=== PATIENT | female | born 1965 | race Caucasian/White ===

== ENCOUNTER → 2020-08-04 08:15 | Outpatient (BNVA) | payer OTHER, MEDICARE, SELFPAY | PROVIDERS: PCP Internal Medicine; Visit Provider Family Medicine Adult Medicine | DX: M96.1 Postlaminectomy syndrome, not elsewhere classified (principal); Z79.891 Long term (current) use of opiate analgesic | CPT/HCPCS: 99212 ==

== ENCOUNTER → 2020-09-17 09:00 | Outpatient (BNVA) | payer OTHER, MEDICARE, SELFPAY | PROVIDERS: PCP Internal Medicine; Referring Provider Internal Medicine; Visit Provider Anesthesiology | DX: M96.1 Postlaminectomy syndrome, not elsewhere classified (principal); G89.4 Chronic pain syndrome; Z79.891 Long term (current) use of opiate analgesic | CPT/HCPCS: 99212 ==

== ENCOUNTER → 2020-09-29 09:31 | Outpatient (BNVA) | payer OTHER, MEDICARE, SELFPAY | PROVIDERS: PCP Internal Medicine; Visit Provider Family Medicine Adult Medicine | DX: M96.1 Postlaminectomy syndrome, not elsewhere classified (principal); Z79.899 Other long term (current) drug therapy | CPT/HCPCS: 99212 ==

== ENCOUNTER → 2020-11-19 08:27 | Outpatient (BNVA) | payer OTHER, MEDICARE, SELFPAY | PROVIDERS: PCP Internal Medicine; Visit Provider Anesthesiology ==

== ENCOUNTER → 2020-11-24 08:32 | Outpatient (BNVA) | payer OTHER, MEDICARE, SELFPAY | PROVIDERS: PCP Internal Medicine; Visit Provider Family Medicine Adult Medicine | DX: M96.1 Postlaminectomy syndrome, not elsewhere classified (principal); G89.4 Chronic pain syndrome; Z79.891 Long term (current) use of opiate analgesic | CPT/HCPCS: 99212 ==

== ENCOUNTER → 2020-12-08 12:59 | Outpatient (BNVA) | payer OTHER, MEDICARE, SELFPAY | PROVIDERS: PCP Internal Medicine; Visit Provider Family Medicine Adult Medicine | DX: M96.1 Postlaminectomy syndrome, not elsewhere classified (principal); G89.4 Chronic pain syndrome | CPT/HCPCS: 99212 ==

== ENCOUNTER → 2021-01-04 15:01 | Outpatient (BNVA) | payer OTHER, MEDICARE, SELFPAY | PROVIDERS: PCP Internal Medicine; Visit Provider Anesthesiology ==

== ENCOUNTER → 2021-01-07 15:11 | Outpatient (BNVA) | payer OTHER, MEDICARE, SELFPAY | PROVIDERS: PCP Internal Medicine; Visit Provider Family Medicine Adult Medicine | DX: Z13.89 Encounter for screening for other disorder (principal) | CPT/HCPCS: 99212 ==

== ENCOUNTER → 2021-02-01 13:32 | Outpatient (BNVA) | payer OTHER, MEDICARE, SELFPAY | PROVIDERS: PCP Internal Medicine; Visit Provider Internal Medicine Gastroenterology | DX: Z13.89 Encounter for screening for other disorder (principal) ==

== ENCOUNTER → 2021-02-18 12:46 | Outpatient (BNVA) | payer OTHER, MEDICARE, SELFPAY | PROVIDERS: PCP Internal Medicine; Visit Provider Family Medicine Adult Medicine | DX: M96.1 Postlaminectomy syndrome, not elsewhere classified (principal); G89.4 Chronic pain syndrome | CPT/HCPCS: 99212 ==

== ENCOUNTER → 2021-03-17 14:48 | Outpatient (BNVA) | payer OTHER, MEDICARE, SELFPAY | PROVIDERS: PCP Internal Medicine; Visit Provider Nurse Practitioner Family | DX: M96.1 Postlaminectomy syndrome, not elsewhere classified (principal); G89.4 Chronic pain syndrome; Z79.891 Long term (current) use of opiate analgesic | CPT/HCPCS: 99212 ==

== ENCOUNTER → 2021-04-13 13:47 | Outpatient (BNVA) | payer OTHER, MEDICARE, SELFPAY | PROVIDERS: PCP Internal Medicine; Visit Provider Family Medicine Adult Medicine | DX: M96.1 Postlaminectomy syndrome, not elsewhere classified (principal); G89.4 Chronic pain syndrome | CPT/HCPCS: 99212 ==

== ENCOUNTER → 2021-05-11 09:02 | Outpatient (BNVA) | payer OTHER, SELFPAY | PROVIDERS: PCP Internal Medicine; Visit Provider Family Medicine Adult Medicine | DX: M96.1 Postlaminectomy syndrome, not elsewhere classified (principal); G89.4 Chronic pain syndrome | CPT/HCPCS: 99212 ==

== ENCOUNTER → 2021-06-11 13:51 | Outpatient (BNVA) | payer OTHER, SELFPAY | PROVIDERS: PCP Internal Medicine; Visit Provider Nurse Practitioner Family | DX: Z51.81 Encounter for therapeutic drug level monitoring (principal); M96.1 Postlaminectomy syndrome, not elsewhere classified; G89.4 Chronic pain syndrome; Z79.891 Long term (current) use of opiate analgesic | CPT/HCPCS: 99212 ==

== ENCOUNTER → 2021-07-15 08:32 | Outpatient (BNVA) | payer OTHER, SELFPAY | PROVIDERS: PCP Internal Medicine; Visit Provider Family Medicine Adult Medicine | DX: G89.4 Chronic pain syndrome (principal); M96.1 Postlaminectomy syndrome, not elsewhere classified; E78.5 Hyperlipidemia, unspecified; F41.8 Other specified anxiety disorders; Z88.8 Allergy status to other drugs, medicaments and biological substances; Z79.891 Long term (current) use of opiate analgesic; Z79.899 Other long term (current) drug therapy | CPT/HCPCS: 99212 ==

== ENCOUNTER → 2021-08-10 10:44 | Outpatient (BNVA) | payer OTHER, SELFPAY | PROVIDERS: Visit Provider Family Medicine Adult Medicine | DX: G89.4 Chronic pain syndrome (principal); M96.1 Postlaminectomy syndrome, not elsewhere classified; Z79.899 Other long term (current) drug therapy | CPT/HCPCS: 99212 ==

== ENCOUNTER → 2021-09-14 10:10 | Outpatient (BNVA) | payer OTHER, SELFPAY | PROVIDERS: Visit Provider Family Medicine Adult Medicine ==

== ENCOUNTER → 2021-10-12 12:47 | Outpatient (BNVA) | payer OTHER, SELFPAY | PROVIDERS: PCP Internal Medicine; Visit Provider Nurse Practitioner Family | DX: Z51.81 Encounter for therapeutic drug level monitoring (principal); F11.20 Opioid dependence, uncomplicated | CPT/HCPCS: 99212 ==

== ENCOUNTER → 2021-11-11 09:50 | Outpatient (BNVA) | payer OTHER, SELFPAY | PROVIDERS: PCP Internal Medicine; Visit Provider Nurse Practitioner Family | DX: Z51.81 Encounter for therapeutic drug level monitoring (principal); F11.20 Opioid dependence, uncomplicated | CPT/HCPCS: 99212 ==

== ENCOUNTER → 2021-12-09 13:30 | Outpatient (BNVA) | payer OTHER, SELFPAY | PROVIDERS: PCP Internal Medicine; Visit Provider Nurse Practitioner Family | DX: Z51.81 Encounter for therapeutic drug level monitoring (principal); F11.20 Opioid dependence, uncomplicated; M96.1 Postlaminectomy syndrome, not elsewhere classified; G89.4 Chronic pain syndrome | CPT/HCPCS: 99212 ==

== ENCOUNTER → 2022-01-04 09:57 | Outpatient (BNVA) | payer OTHER, SELFPAY | PROVIDERS: PCP Internal Medicine; Visit Provider Nurse Practitioner Family | DX: Z51.81 Encounter for therapeutic drug level monitoring (principal); F11.20 Opioid dependence, uncomplicated; M96.1 Postlaminectomy syndrome, not elsewhere classified; G89.4 Chronic pain syndrome | CPT/HCPCS: 99212 ==

== ENCOUNTER → 2022-02-01 09:57 | Outpatient (BNVA) | payer SELFPAY | PROVIDERS: PCP Internal Medicine; Visit Provider Nurse Practitioner Family | DX: Z51.81 Encounter for therapeutic drug level monitoring (principal); F11.20 Opioid dependence, uncomplicated | CPT/HCPCS: 99211 ==

== ENCOUNTER → 2022-03-01 10:50 | Outpatient (BNVA) | payer OTHER, SELFPAY | PROVIDERS: PCP Internal Medicine; Visit Provider Nurse Practitioner Family | DX: Z51.81 Encounter for therapeutic drug level monitoring (principal); M96.1 Postlaminectomy syndrome, not elsewhere classified; G89.4 Chronic pain syndrome; Z79.891 Long term (current) use of opiate analgesic | CPT/HCPCS: 99212 ==

== ENCOUNTER → 2022-03-29 08:41 | Outpatient (BNVA) | payer OTHER, SELFPAY | PROVIDERS: PCP Internal Medicine; Visit Provider Nurse Practitioner Family | DX: Z51.81 Encounter for therapeutic drug level monitoring (principal); G89.4 Chronic pain syndrome; M96.1 Postlaminectomy syndrome, not elsewhere classified; M62.830 Muscle spasm of back; Z79.891 Long term (current) use of opiate analgesic | CPT/HCPCS: 99212 ==

== ENCOUNTER → 2022-04-26 08:59 | Outpatient (BNVA) | payer OTHER, SELFPAY | PROVIDERS: PCP Internal Medicine; Visit Provider Nurse Practitioner Family | DX: Z51.81 Encounter for therapeutic drug level monitoring (principal); F11.20 Opioid dependence, uncomplicated | CPT/HCPCS: 99211 ==

== ENCOUNTER → 2022-05-26 08:48 | Outpatient (BNVA) | payer OTHER, SELFPAY | PROVIDERS: PCP Internal Medicine; Visit Provider Nurse Practitioner Family | DX: Z51.81 Encounter for therapeutic drug level monitoring (principal); F11.20 Opioid dependence, uncomplicated | CPT/HCPCS: 99211 ==

== ENCOUNTER → 2022-06-27 08:45 | Outpatient (BNVA) | payer OTHER, SELFPAY | PROVIDERS: PCP Internal Medicine; Visit Provider Nurse Practitioner Family | DX: M96.1 Postlaminectomy syndrome, not elsewhere classified (principal); G89.4 Chronic pain syndrome; M62.830 Muscle spasm of back; Z79.891 Long term (current) use of opiate analgesic | CPT/HCPCS: 99212 ==

== ENCOUNTER → 2022-07-28 10:47 | Outpatient (BNVA) | payer OTHER, SELFPAY | PROVIDERS: PCP Internal Medicine; Visit Provider Nurse Practitioner Family | DX: Z51.81 Encounter for therapeutic drug level monitoring (principal); F11.20 Opioid dependence, uncomplicated | CPT/HCPCS: 99211 ==

== ENCOUNTER → 2022-09-05 10:28 | Outpatient (BNVA) | payer OTHER, SELFPAY | PROVIDERS: PCP Internal Medicine; Visit Provider Nurse Practitioner Family | DX: M96.1 Postlaminectomy syndrome, not elsewhere classified (principal); G89.4 Chronic pain syndrome; M62.830 Muscle spasm of back; Z79.891 Long term (current) use of opiate analgesic | CPT/HCPCS: 99212 ==

== ENCOUNTER → 2022-10-04 09:57 | Outpatient (BNVA) | payer OTHER, SELFPAY | PROVIDERS: PCP Internal Medicine; Visit Provider Nurse Practitioner Family | DX: Z51.81 Encounter for therapeutic drug level monitoring (principal) ==

== ENCOUNTER → 2022-11-03 09:29 | Outpatient (BNVA) | payer OTHER, SELFPAY | PROVIDERS: PCP Internal Medicine; Visit Provider Nurse Practitioner Family | DX: M96.1 Postlaminectomy syndrome, not elsewhere classified (principal); M62.830 Muscle spasm of back; G89.4 Chronic pain syndrome; Z79.891 Long term (current) use of opiate analgesic | CPT/HCPCS: 99212 ==

== ENCOUNTER → 2022-12-01 11:47 | Outpatient (BNVA) | payer OTHER, SELFPAY | PROVIDERS: PCP Internal Medicine; Visit Provider Nurse Practitioner Family | DX: Z51.81 Encounter for therapeutic drug level monitoring (principal); F11.20 Opioid dependence, uncomplicated | CPT/HCPCS: 99211 ==

== ENCOUNTER → 2023-01-04 10:32 | Outpatient (BNVA) | payer OTHER, SELFPAY | PROVIDERS: PCP Internal Medicine; Visit Provider Anesthesiology | DX: M96.1 Postlaminectomy syndrome, not elsewhere classified (principal) | CPT/HCPCS: 99212 ==

== ENCOUNTER → 2023-02-01 11:17 | Outpatient (BNVA) | payer OTHER, SELFPAY | PROVIDERS: PCP Internal Medicine; Visit Provider Nurse Practitioner Family | DX: Z79.891 Long term (current) use of opiate analgesic (principal) | CPT/HCPCS: 99211 ==

== ENCOUNTER → 2023-03-07 10:02 | Outpatient (BNVA) | payer OTHER, SELFPAY | PROVIDERS: PCP Internal Medicine; Visit Provider Registered Nurse Emergency | DX: Z51.81 Encounter for therapeutic drug level monitoring (principal); M96.1 Postlaminectomy syndrome, not elsewhere classified; M62.830 Muscle spasm of back; Z79.891 Long term (current) use of opiate analgesic; G89.4 Chronic pain syndrome | CPT/HCPCS: 99212 ==

== ENCOUNTER → 2023-04-04 09:53 | Outpatient (BNVA) | payer OTHER, SELFPAY | PROVIDERS: PCP Internal Medicine; Visit Provider Registered Nurse Emergency | DX: G89.4 Chronic pain syndrome (principal); M96.1 Postlaminectomy syndrome, not elsewhere classified; M62.830 Muscle spasm of back; Z79.891 Long term (current) use of opiate analgesic | CPT/HCPCS: 99212 ==

== ENCOUNTER 2023-05-16 10:04 | Outpatient (AMB) | payer OTHER, SELFPAY ==
--- NOTE | 2023-05-16 10:14 | A.OFFVIS_ITS ---
Intake Vital Signs 05/16/23 10:18 Height 5 ft 2 in Weight 133 lb BMI 24.3 BP 112/58 L Blood Pressure Location Rt brachial Position Sitting Respiration 16 Pulse 70 Pulse Source Pulse Oximeter Pulse Oximetry (%) 97 Oxygen Delivery Method Room Air Intake Visit Reasons: Pill count Allergies adhesive Allergy (Unknown, Verified 05/16/23 10:20) Hives Adhesive Bandages Allergy (Unknown, Uncoded 02/01/23 11:38) hives medical tape Allergy (Unknown, Uncoded 02/01/23 11:38) hives N.K.D.A. Allergy (Unknown, Uncoded 02/01/23 11:38) none HPI HPI Comments History of Present Illness Details Vannesa is a pleasant 58 year old female who presents to the office today for follow up chronic pain and chronic opioid therapy management. Patient is prescribed oxycodone acetaminophen 5-325mg take 1 tablet Q8H. Patient arrived today with the expectation of having 30 pills, she presented 33 pills which were counted in the presence of two staff members and returned to the patient in the original prescription bottle. This demonstrates responsible attitude toward patient's opioid medications. Pain is reported today as 5/10 and last dose of pain medication was taken at 08:00 this morning. Pain is adequatel y managed on current opioid regimen; she denies any recent changes or exacerbations of chronic back pain and states she is able to engage in activities of daily living with the benefits of her opioid medication. Recently returned from a trip to [place], had a great time and was able to do a lot of walking while there. Prior visit with Dr Edgar 12/2022: She reports inadequate analgesia with her opioid medications.? She is on Percocet 5 mg 3 times a day.? She reports that her pain today is 6.5/10.? She reports significant problems with getting up straight from the wheelchair.? She reports bilateral flanks pains as well as bilateral paraspinal pains in the thoracic spine.? She formally had 3 pulmonary embolisms.? I DDD and SCS discussed with the patient.? Trial of Nevro SCS is offered to the patient if she can pass through the pre trial psychological evaluation.? She would like to think about it.. [facility] Medical History Anxiety Chronic pain syndrome Depression Failed back syndrome, lumbar Gastritis Hyperlipidemia retirement (current) use of opiate analgesic Surgical History H/O colonoscopy H/O discectomy H/O esophagogastroduodenoscopy H/O total hysterectomy H/O tubal ligation Family History Father No problems noted. Mother Diabetes Sister Ovarian cancer Review of Systems Const All systems reviewed & are unremarkable except as noted in HPI and below Physical Exam Const Other: General: awake, alert, oriented. Answers questions appropriately. Fully engaged in examination. Skin: warm, dry, intact without visible rashes or lesions. HEENT: Normocephalic. Conjuntivae clear without exudate. Sclera non-icteric. Hearing intact. Cardiac: External chest normal in appearance. Respiratory: No signs of trauma. No signs of respiratory distress. No cough, audible wheezing or stridor. Abdomen: without gross distension. MS: No obvious swelling or deformities. able to transition from sit to stand without assistance. ambulates with steady gait, utilizes cane for assistance Neurological: Oriented to person, place, time and situation. Thought process intact. No gait abnormalities appreciated. Psychiatric: Appropriate mood and affect. Good judgment and insight. 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 No obvious signs of diversion, abuse or misuse of the opioid medications. Will send in prescription for oxycodone/acetaminophen 5-325 mg Q8H with an advanced date of 05/26/2023. Patient to follow-up in the office in 1 month, sooner if needed. All questions and concerns have been answered and patient agrees with the plan. Previously, ITDD and SCS Nevro discussed with the patient with emphasis on Nevro cervical placement. Patient declines proceeding with interventional treatment at this time. Medications: Refilled oxycodone-acetaminophen 5-325 mg Partial Fill upon patient request. 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
[2023-05-16 10:18] VITALS: BP 112/58; PULSE 70; RESP 16; O2SAT 97; BMI 24.3
== END 2023-05-16 10:34 | disposition home or self-care (01) ==
PROVIDERS: PCP Internal Medicine; Visit Provider Registered Nurse Emergency
DX: G89.4 Chronic pain syndrome (principal); M96.1 Postlaminectomy syndrome, not elsewhere classified; Z79.891 Long term (current) use of opiate analgesic; M62.830 Muscle spasm of back
CPT/HCPCS: 99213

== ENCOUNTER → 2023-05-16 10:04 | Outpatient (BNVA) | payer OTHER, SELFPAY | PROVIDERS: PCP Internal Medicine; Visit Provider Registered Nurse Emergency | DX: G89.4 Chronic pain syndrome (principal); M96.1 Postlaminectomy syndrome, not elsewhere classified; M62.830 Muscle spasm of back; Z79.891 Long term (current) use of opiate analgesic | CPT/HCPCS: 99212 ==

== ENCOUNTER 2023-06-08 09:42 | Outpatient (AMB) | payer OTHER, SELFPAY ==
--- NOTE | 2023-06-08 09:50 | MHC.OFFVIS ---
Intake Vital Signs 06/08/23 09:54 Height 5 ft 2 in Weight 133 lb 2.547 oz BMI 24.4 BP 125/56 L Blood Pressure Location Lt brachial Position Sitting Pulse 78 Intake Visit Reasons: screening colo req from Dr Tobin PCP Intake Note: Vannesa presents in office as a new.patient for a colonoscopy screening PT CC: pt reports having no concerns ,4th colo pt denies any other GI Issues Insulation Cupola Charger Required: No Accompanied by: Self / Same As Patient Allergies adhesive Allergy (Unknown, Verified 06/08/23 09:55) Hives Adhesive Bandages Allergy (Unknown, Uncoded 06/08/23 09:55) hives medical tape Allergy (Unknown, Uncoded 06/08/23 09:55) hives N.K.D.A. Allergy (Unknown, Uncoded 06/08/23 09:55) none Medication List - Last Reconciled 06/08/23 by Melissa Jones PA-C bupropion HCl 150 mg PO QAM clonazepam 2 mg PO BEDTIME clonazepam 1 mg PO DAILY gabapentin 800 mg PO BEDTIME 90 days oxycodone-acetaminophen 5-325 mg 1 tab PO Q8H PRN 30 days pravastatin 40 mg PO DAILY venlafaxine ER 300 mg PO QAM HPI HPI Comments History of Present Illness Details - established with Dr. Ruelas A 58 y/o female due for colonoscopy- positive-check 2-gene- EGD/ colonoscopy 2019 History of diarrhea has now pretty much resolved. She has made dietary modifications. She has no GI complaints. No nausea, vomiting, hematemesis, hematochezia fever chills PFSH Medical History Anxiety Chronic pain syndrome Depression Failed back syndrome, lumbar Gastritis Hyperlipidemia assisted (current) use of opiate analgesic Surgical History H/O colonoscopy H/O discectomy H/O esophagogastroduodenoscopy H/O total hysterectomy H/O tubal ligation Family History Father No problems noted. Mother Diabetes Sister Ovarian cancer Social History (Updated 06/08/23 @ 10:13 by Melissa Jones PA-C) Household Members Other:: lives with son Patient Tobacco Use Status: Never used Tobacco Review of Systems Const All systems reviewed & are unremarkable except as noted in HPI and below Card Denies chest pain and Denies dyspnea Resp Denies dyspnea GI Denies abdominal pain, Denies hematochezia, Denies change in bowel habits and Denies loose stools Musc Reports abnormal gait and Reports back pain Neuro Reports abnormal gait Physical Exam Vital Signs: Last Vital Signs Pulse 78 06/08/23 09:54 BP 125/56 L 06/08/23 09:54 BMI result Body Mass Index 24.4 Const General: cooperative, healthy appearing and comfortable Limitations: ambulation with cane Eyes Sclerae: sclerae normal Resp Effort & Inspection: normal respiratory effort and able to speak in complete sentences Auscultation: clear to auscultation bilaterally and no wheezes Cardio Rate: regular rate Rhythm: regular rhythm Heart sounds: S1 normal heart sound present and S2 normal heart sound present GI Palpation (GI): Soft to palpation and nontender Auscultation: normal bowel sounds Skin General skin exam: no rashes or lesions noted Extrem General: Yes full ROM Psych Appearance: well kempt Mental Status: mental status grossly normal Speech and movement: Normal speech and movement present Affect: normal affect Attitude: cooperative Thought process: Normal thought process present Thought content: Normal thought content present Assessment & Plan Assessment & Plan (1) 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 Ruelas Code(s): Z14.8 - Genetic carrier of other disease (2) Encounter for screening colonoscopy: Code(s): Z12.11 - Encounter for screening for malignant neoplasm of colon Plan Colonoscopy- MG prep- Dr. RUELAS- established Orders: Orders Colonoscopy - GI Use Only Today Z12.11 - Encounter for screening for malignant neoplasm of colon, Z14.8 - Genetic carrier of other disease Medications: New bisacodyl (Dulcolax (bisacodyl)) Take 4 tablets by mouth at 12:00pm the day before your procedure. 20 mg (4 x 5 mg) PO ONCE 4 tabs 0RF colonoscopy prep 1 day Z12.11 - Encounter for screening for malignant neoplasm of colon polyethylene glycol 3350 (Miralax) Take as directed by mouth the day before your procedure. 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
[2023-06-08 09:54] VITALS: BP 125/56; PULSE 78; BMI 24.4
== END 2023-06-08 10:25 | disposition home or self-care (01) ==
PROVIDERS: PCP Internal Medicine; Visit Provider Physician Assistant
DX: Z14.8 Genetic carrier of other disease (principal); Z12.11 Encounter for screening for malignant neoplasm of colon
CPT/HCPCS: 99213

== ENCOUNTER → 2023-06-08 09:42 | Outpatient (BNVA) | payer OTHER, SELFPAY | PROVIDERS: PCP Internal Medicine; Visit Provider Physician Assistant | DX: Z12.11 Encounter for screening for malignant neoplasm of colon (principal); Z14.8 Genetic carrier of other disease; Z79.891 Long term (current) use of opiate analgesic | CPT/HCPCS: 99212 ==

== ENCOUNTER 2023-06-13 09:41 | Outpatient (AMB) | payer OTHER, SELFPAY ==
[2023-06-13 09:53] VITALS: BP 124/62; PULSE 55; RESP 14; O2SAT 99; BMI 24.7
--- NOTE | 2023-06-13 09:53 | A.OFFVIS_ITS ---
Intake Vital Signs 06/13/23 09:53 Height 5 ft 2 in Weight 135 lb 4 oz BMI 24.7 BP 124/62 Blood Pressure Location Lt brachial Position Sitting Respiration 14 Pulse 55 Pulse Source Pulse Oximeter Pulse Oximetry (%) 99 Oxygen Delivery Method Room Air Intake Visit Reasons: Pill Count/ Random UDS Allergies adhesive Allergy (Unknown, Verified 06/13/23 09:54) Hives Adhesive Bandages Allergy (Unknown, Uncoded 06/08/23 09:55) hives medical tape Allergy (Unknown, Uncoded 06/08/23 09:55) hives N.K.D.A. Allergy (Unknown, Uncoded 06/08/23 09:55) none HPI HPI Comments History of Present Illness Details Vannesa is a pleasant 58 year old female who presents to the office today for follow up chronic pain and chronic opioid therapy management. Patient is prescribed oxycodone acetaminophen 5-325mg take 1 tablet Q8H as needed for pain. Patient arrived today with the expectation of having 39 pills, she presented 45 pills which were counted in the presence of two staff members and returned to the patient in the original prescription bottle. This demonstrates responsible attitude toward patient's opioid medications. Pain is reported today as 6/10 and last dose of pain medication was taken at 08:00 this morning. Pain is adequately managed on current opioid regimen; she denies any recent changes or exacerbations of chronic back pain and states she is able to engage in activities of daily living with the benefits of her opioid medication. Prior visit with Dr Edgar 12/2022: She reports inadequate analgesia with her opioid medications.? She is on Percocet 5 mg 3 times a day.? She reports that her pain today is 6.5/10.? She reports significant problems with getting up straight from the wheelchair.? She reports bilateral flanks pains as well as bilateral paraspinal pains in the thoracic spine.? She formally had 3 pulmonary embolisms.? I DDD and SCS discussed with the patient.? Trial of Nevro SCS is offered to the patient if she can pass through the pre trial psychological evaluation.? She would like to think about it.. 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 Mother Diabetes Sister Ovarian cancer Social History (Updated 06/08/23 @ 10:13 by Melissa Jones PA-C) Household Members Other:: lives with son Patient Tobacco Use Status: Never used Tobacco Review of Systems Const All systems reviewed & are unremarkable except as noted in HPI and below Physical Exam Vital Signs: Last Vital Signs Pulse 55 06/13/23 09:53 Resp 14 06/13/23 09:53 BP 124/62 06/13/23 09:53 Pulse Ox 99 06/13/23 09:53 Oxygen Delivery Method Room Air 06/13/23 09:53 BMI result Body Mass Index 24.7 General: awake, alert, oriented. Answers questions appropriately. Fully engaged in examination. Skin: warm, dry, intact without visible rashes or lesions. HEENT: Normocephalic. Conjuntivae clear without exudate. Sclera non-icteric. Hearing intact. Cardiac: External chest normal in appearance. Respiratory: No signs of trauma. No signs of respiratory distress. No cough, audible wheezing or stridor. Abdomen: without gross distension. MS: No obvious swelling or deformities. able to transition from sit to stand without assistance. ambulates with steady gait, utilizes cane for assistance Neurological: Oriented to person, place, time and situation. Thought process intact. No gait abnormalities appreciated. Psychiatric: Appropriate mood and affect. Good judgment and insight. 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 No obvious signs of diversion, abuse or misuse of the opioid medications. Will send in prescription for oxycodone/acetaminophen 5-325 mg Q8H with an advanced date of 06/26/2023. Random UDS ordered today, patient states last time she was not able to provide sample and vomited while trying to drink water. Will collect saliva mouth swab. Order provided to patient who will go immediately to the lab. Patient to follow-up in the office in 1 month, sooner if needed. All questions and concerns have been answered and patient agrees with the plan. Previously, ITDD and SCS Nevro discussed with the patient with emphasis on Nevro cervical placement. Patient declines proceeding with interventional treat ment at this time. Medications: Refilled oxycodone-acetaminophen 5-325 mg Partial Fill upon patient request. 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
== END 2023-06-13 10:02 | disposition home or self-care (01) ==
PROVIDERS: PCP Internal Medicine; Visit Provider Registered Nurse Emergency
DX: G89.4 Chronic pain syndrome (principal); M96.1 Postlaminectomy syndrome, not elsewhere classified; Z79.891 Long term (current) use of opiate analgesic; M62.830 Muscle spasm of back
CPT/HCPCS: 99213

== ENCOUNTER → 2023-06-13 09:41 | Outpatient (BNVA) | payer OTHER, SELFPAY | PROVIDERS: PCP Internal Medicine; Visit Provider Registered Nurse Emergency | DX: G89.4 Chronic pain syndrome (principal); M96.1 Postlaminectomy syndrome, not elsewhere classified; M62.830 Muscle spasm of back; Z79.891 Long term (current) use of opiate analgesic | CPT/HCPCS: 99212 ==

== ENCOUNTER 2023-07-11 09:58 | Outpatient (AMB) | payer OTHER, SELFPAY ==
[2023-07-11 10:07] VITALS: BP 126/60; PULSE 72; RESP 16; O2SAT 98; BMI 24.6
--- NOTE | 2023-07-11 10:07 | A.OFFVIS_ITS ---
Intake Vital Signs 3 07/11/23 10:07 Height 5 ft 2 in Weight 134 lb 6 oz BMI 24.6 BP 126/60 Blood Pressure Location Rt brachial Position Sitting Respiration 16 Pulse 72 Pulse Source Pulse Oximeter Pulse Oximetry (%) 98 Oxygen Delivery Method Room Air Intake Visit Reasons: Medication Count/ Confirmed Allergies adhesive Allergy (Unknown, Verified 07/11/23 10:07) Hives Adhesive Bandages Allergy (Unknown, Uncoded 06/08/23 09:55) hives medical tape Allergy (Unknown, Uncoded 06/08/23 09:55) hives N.K.D.A. Allergy (Unknown, Uncoded 06/08/23 09:55) none HPI HPI Comments 2 History of Present Illness0 Details Vannesa is a pleasant 58 year old female who presents to the office today for follow up chronic pain and chronic opioid therapy management. Patient is prescribed oxycodone acetaminophen 5-325mg take 1 tablet Q8H as needed for pain. Patient arrived today with the expectation of having 45 pills, she presented 56 pills which were counted in the presence of two staff members and returned to the patient in the original prescription bottle. This demonstrates responsible attitude toward patient's opioid medications. Pain is reported today as 8/10 and last dose of pain medication was taken at 07:30 this morning. Pain is poorly managed on current opioid regimen. Patient reports now that the weather is starting to change her pain is getting worse. She tried SCS in the past and failed the trial. States the lead migrated and her pain was excrutiating. She would like to try ITDDD. Oral swab collected last visit, results reviewed with patient today. Results as per below. Prior visit with Dr Edgar 12/2022: She reports inadequate analgesia with her opioid medications.? She is on Percocet 5 mg 3 times a day.? She reports that her pain today is 6.5/10.? She reports significant problems with getting up straight from the wheelchair.? She reports bilateral flanks pains as well as bilateral paraspinal pains in the thoracic spine.? She formally had 3 pulmonary embolisms.? I DDD and SCS discussed with the patient.? Trial of Nevro SCS is offered to the patient if she can pass through the pre trial psychological evaluation.? She would like to think about it. [facility] Medical History Anxiety Chronic pain syndrome Depression Failed back syndrome, lumbar Gastritis Hyperlipidemia rn intake (current) use of opiate analgesic Surgical History H/O colonoscopy H/O discectomy H/O esophagogastroduodenoscopy H/O total hysterectomy H/O tubal ligation Family History Father No problems noted. Mother Diabetes Sister Ovarian cancer Social History (Updated 06/08/23 @ 10:13 by Melissa Jones PA-C) Household Members Other:: lives with son Patient Tobacco Use Status: Never used Tobacco Review of Systems Const All systems reviewed & are unremarkable except as noted in HPI and below Physical Exam Vital Signs: Last Vital Signs Pulse 72 07/11/23 10:07 Resp 16 07/11/23 10:07 BP 126/60 07/11/23 10:07 Pulse Ox 98 07/11/23 10:07 Oxygen Delivery Method Room Air 07/11/23 10:07 BMI result Body Mass Index 24.6 General: awake, alert, oriented. Answers questions appropriately. Fully engaged in examination. Skin: warm, dry, intact without visible rashes or lesions. HEENT: Normocephalic. Conjuntivae clear without exudate. Sclera non-icteric. Hearing intact. Cardiac: External chest normal in appearance. Respiratory: No signs of trauma. No signs of respiratory distress. No cough, audible wheezing or stridor. Abdomen: without gross distension. MS: No obvious swelling or deformities. able to transition from sit to stand without assistance. ambulates with steady gait, utilizes cane for assistance Neurological: Oriented to person, place, time and situation. Thought process intact. No gait abnormalities appreciated. Psychiatric: Appropriate mood and affect. Good judgment and insight. Const Other: Results Reviewed Results Reviewed: MRI lumbar spine CD[facility] diagnostic imaging 07/25/2020. Anterior fusion of L4-5 with disc [address]. Minimal degenerative retrolisthesis on L3 on L4. Otherwise normal anatomic alignment. Moderate degenerative disc disease at all additional lumbar levels with partial loss of disc height and desiccation (worst at the segmental L3-L4 level (. Mild mixed Modic type discogenic endplate changes including faint Modic type 1 discogenic edema at L2-L3-L3-L4. No additional suspicious Mar edema. The vertebral body heights are largely maintained. The conus medullaris terminates at the level of L1. The distal spinal cord is normal in appearance. No significant abnormalities in the paraspinal musculature. Limited evaluation of the intra-abdominal structures without significant abnormalities. The abdominal aorta is of normal contour and caliber. Axial spinal levels: L1-L2: Mild diffuse disc bulge. There is mild bilateral facet joint arthroplasty. There is mild bilateral neural foraminal stenosis. There is no spinal canal stenosis. L2-L3: Mild to moderate diffuse disc bulge. There is moderate bilateral facet arthropathy with ligamentum flavum hypertrophy. There is moderate right and [id number] left neural foraminal stenosis. There is stenosis of the right greater than left lateral recess with no overall spinal canal stenosis centrally. L3-L4: Moderate disc bulge eccentric to the left. There is moderate bilateral facet joint arthropathy with ligamentum flavum hypertrophy. There is severe left and moderate to severe right neural foraminal stenosis. There is stenosis of the left greater than right lateral recess with no overt spinal canal stenosis centrally. L4-5: Fused at this level. Posterior decompression. There is no overt facet joint arthropathy. There is mild bilateral neural foraminal stenosis. There is no spinal canal stenosis. L5-S1: Mild diffuse disc bulge. There is moderate bilateral facet joint arthropathy. There is moderate left and mild right neural foraminal stenosis. There is no spinal canal stenosis. 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 It is notably there are stenosis of the lateral recess at L2-L3 and L3-L4. Moderate to severe neural foraminal stenosis at L2-L3-L3-L4 worse at L3-L4. No overt spinal canal stenosis. 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 No obvious signs of diversion, abuse or misuse of the opioid medications. Will send in prescription for oxycodone/acetaminophen 5-325 mg Q8H with an advanced date of 07/26/2023. Patient would like to move forward with ITDD trial. She states the SCS trial was too painful in the past and she can't suffer through that again. She is aware that either would require MH clearance, she had out of pocket cost for the last one. She is willing to proceed but it would depend on the cost for the eval. Will submit for eval and if she passes with plan for ITDD trial with Dr. Edgar. Patient to follow-up in the office in 1 month, sooner if needed. All questions and concerns have been answered and patient agrees with the plan. Previously, ITDD and SCS Nevro discussed with the patient with emphasis on Nevro cervical placement. Coding Level of Care Code Est Pt Level 4 (03095) Diagnoses Chronic pain syndrome G89.4 Failed back syndrome, lumbar M96.1 Opioid contract exists Z79.891 Muscle spasm of back M62.830
== END 2023-07-11 10:29 | disposition home or self-care (01) ==
PROVIDERS: PCP Internal Medicine; Visit Provider Registered Nurse Emergency
DX: G89.4 Chronic pain syndrome (principal); M96.1 Postlaminectomy syndrome, not elsewhere classified; Z79.891 Long term (current) use of opiate analgesic; M62.830 Muscle spasm of back
CPT/HCPCS: 99214

== ENCOUNTER → 2023-07-11 09:58 | Outpatient (BNVA) | payer OTHER, SELFPAY | PROVIDERS: PCP Internal Medicine; Visit Provider Registered Nurse Emergency | DX: G89.4 Chronic pain syndrome (principal); M96.1 Postlaminectomy syndrome, not elsewhere classified; M62.830 Muscle spasm of back; Z79.891 Long term (current) use of opiate analgesic | CPT/HCPCS: 99212 ==

== ENCOUNTER 2023-08-08 10:36 | Outpatient (AMB) | payer OTHER, SELFPAY ==
--- NOTE | 2023-08-08 10:43 | A.OFFVIS_ITS ---
Intake Vital Signs 08/08/23 10:44 Height 5 ft 2 in Weight 134 lb BMI 24.5 Blood Pressure Location Rt brachial Position Sitting Respiration 12 Pulse 51 Pulse Source Pulse Oximeter Pulse Oximetry (%) 99 Oxygen Delivery Method Room Air Intake Visit Reasons: Medication Count/confirmed Intake Note: Pt states she last took percocet 08/08/23 @ 8:30am Allergies adhesive Allergy (Unknown, Verified 08/08/23 10:46) Hives Adhesive Bandages Allergy (Unknown, Uncoded 08/08/23 10:46) hives medical tape Allergy (Unknown, Uncoded 08/08/23 10:46) hives N.K.D.A. Allergy (Unknown, Uncoded 08/08/23 10:46) none Medication List - Last Reconciled 08/08/23 by Ariella Khoury LPN bupropion HCl 150 mg PO QAM clonazepam 2 mg PO BEDTIME clonazepam 1 mg PO DAILY gabapentin 800 mg PO BEDTIME oxycodone-acetaminophen 5-325 mg 1 tab PO Q8H PRN 30 days pravastatin 40 mg PO DAILY venlafaxine ER 300 mg PO QAM HPI HPI Comments History of Present Illness Details Vannesa is a pleasant 58 year old female who presents to the office today for follow up chronic pain and chronic opioid therapy management. Patient is prescribed oxycodone acetaminophen 5-325mg take 1 tablet Q8H as nee ded for pain. Patient arrived today with the expectation of having 60 pills, she presented 68 pills which were counted in the presence of two staff members and returned to the patient in the original prescription bottle. This demonstrates responsible attitude toward patient's opioid medications. Pain is reported today as 7/10 and last dose of pain medication was taken at 08:30 this morning. Patient continues to report that pain is worse now that the weather is getting colder. She is in the process of getting psych eval with [facility] so she can proceed with SCS or ITDDD. Prior visit with Dr Edgar 12/2022: She reports inadequate analgesia with her opioid medications.? She is on Percocet 5 mg 3 times a day.? She reports that her pain today is 6.5/10.? She reports significant problems with getting up straight from the wheelchair.? She reports bilateral flanks pains as well as bilateral paraspinal pains in the thoracic spine.? She formally had 3 pulmonary embolisms.? I DDD and SCS discussed with the patient.? Trial of Nevro SCS is offered to the patient if she can pass through the pre trial psychological evaluation.? She would like to think about it. [facility] Medical History Anxiety Chronic pain syndrome Depression Failed back syndrome, lumbar Gastritis Hyperlipidemia [facility] (current) use of opiate analgesic Surgical History H/O colonoscopy H/O discectomy H/O esophagogastroduodenoscopy H/O total hysterectomy H/O tubal ligation Family History Father No problems noted. Mother Diabetes Sister Ovarian cancer Social History (Updated 06/08/23 @ 10:13 by Melissa Jones PA-C) Household Members Other:: lives with son Patient Tobacco Use Status: Never used Tobacco Review of Systems Const All systems reviewed & are unremarkable except as noted in HPI and below Physical Exam Vital Signs: Last Vital Signs Pulse 51 08/08/23 10:44 Resp 12 08/08/23 10:44 Pulse Ox 99 08/08/23 10:44 Oxygen Delivery Method Room Air 08/08/23 10:44 BMI result Body Mass Index 24.5 General: awake, alert, oriented. Answers questions appropriately. Fully engaged in examination. Skin: warm, dry, intact without visible rashes or lesions. HEENT: Normocephalic. Conjuntivae clear without exudate. Sclera non-icteric. Hearing intact. Cardiac: External chest normal in appearance. Respiratory: No signs of trauma. No signs of respiratory distress. No cough, audible wheezing or stridor. Abdomen: without gross distension. MS: No obvious swelling or deformities. able to transition from sit to stand without assistance. ambulates with steady gait, utilizes cane for assistance Neurological: Oriented to person, place, time and situation. Thought process intact. No gait abnormalities appreciated. Psychiatric: Appropriate mood and affect. Good judgment and insight. Const Other: Results Reviewed Results Reviewed: MRI lumbar spine CDI diagnostic imaging 07/25/2020. Anterior fusion of L4-5 with disc [address]. Minimal degenerative retrolisthesis on L3 on L4. Otherwise normal anatomic alignment. Moderate degenerative disc disease at all additional lumbar levels with partial loss of disc height and desiccation (worst at the segmental L3-L4 level (. Mild mixed Modic type discogenic endplate changes including faint Modic type 1 discogenic edema at L2-L3-L3-L4. No additional suspicious Mar edema. The vertebral body heights are largely maintained. The conus medullaris terminates at the level of L1. The distal spinal cord is normal in appearance. No significant abnormalities in the paraspinal musculature. Limited evaluation of the intra-abdominal structures without significant abnormalities. The abdominal aorta is of normal contour and caliber. Axial spinal levels: L1-L2: Mild diffuse disc bulge. There is mild bilateral facet joint arthroplasty. There is mild bilateral neural foraminal stenosis. There is no spinal canal stenosis. L2-L3: Mild to moderate diffuse disc bulge. There is moderate bilateral facet arthropathy with ligamentum flavum hypertrophy. There is moderate right and [id number]-[id number] left neural foraminal stenosis. There is stenosis of the right greater than left lateral recess with no overall spinal canal stenosis centrally. L3-L4: Moderate disc bulge eccentric to the left. There is moderate bilateral facet joint arthropathy with ligamentum flavum hypertrophy. There is severe left and moderate to severe right neural foraminal stenosis. There is stenosis of the left greater than right lateral recess with no overt spinal canal stenosis centrally. L4-5: Fused at this level. Posterior decompression. There is no overt facet joint arthropathy. There is mild bilateral neural foraminal stenosis. There is no spinal canal stenosis. L5-S1: Mild diffuse disc bulge. There is moderate bilateral facet joint arthropathy. There is moderate left and mild right neural foraminal stenosis. There is no spinal canal stenosis. 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 It is notably there are stenosis of the lateral recess at L2-L3 and L3-L4. Moderate to severe neural foraminal stenosis at L2-L3-L3-L4 worse at L3-L4. No overt spinal canal stenosis. Assessment & Plan Assessment & Plan (1) Chronic pain syndrome: Code(s): G89.4 - Chronic pain syndrome (2) Failed back syndrome, lumbar: Code(s): M96.1 - Postlaminectomy syndrome, not elsewhere classified (3) Opioid contract exists: Code(s): Z79.891 - [facility] (current) use of opiate analgesic (4) Muscle spasm of back: Code(s): M62.830 - Muscle spasm of back Plan [facility] was reviewed and without concerns. No obvious signs of diversion, abuse or misuse of the opioid medications. Will send in prescription for oxycodone/acetaminophen 5-325 mg Q8H with an advanced date of 08/28/2023. Patient still considering repeat SCS trial very ITDDD. She is aware that both require psych eval. She has been contacted by [employer] and is working to get this completed. Once approval from [employer] is received will place order for SCS trial VS ITDDD trial. Patient to follow-up in the office in 1 month, sooner if needed. All questions and concerns have been answered and patient agrees with the plan. Previously, ITDD and SCS Nevro discussed with the patient with emphasis on Nevro cervical placement. Medications: Refilled oxycodone-acetaminophen 5-325 mg Partial Fill upon patient request. 1 tab PO Q8H 30 days PRN 90 tabs 0RF pain G89.4 - Chronic pain syndrome, M96.1 - Postlaminectomy syndrome, not elsewhere classified, Z79.891 - [employer] (current) use of opiate analgesic Coding Level of Care Code Est Pt Level 3 (29776) Diagnoses Chronic pain syndrome G89.4 Failed back syndrome, lumbar M96.1 Opioid contract exists Z79.891 Muscle spasm of back M62.830
[2023-08-08 10:44] VITALS: PULSE 51; RESP 12; O2SAT 99; BMI 24.5
== END 2023-08-08 11:14 | disposition home or self-care (01) ==
PROVIDERS: PCP Internal Medicine; Visit Provider Registered Nurse Emergency
DX: G89.4 Chronic pain syndrome (principal); M96.1 Postlaminectomy syndrome, not elsewhere classified; Z79.891 Long term (current) use of opiate analgesic; M62.830 Muscle spasm of back
CPT/HCPCS: 99213

== ENCOUNTER → 2023-08-08 10:36 | Outpatient (BNVA) | payer OTHER, SELFPAY | PROVIDERS: PCP Internal Medicine; Visit Provider Registered Nurse Emergency | DX: G89.4 Chronic pain syndrome (principal); M96.1 Postlaminectomy syndrome, not elsewhere classified; M62.830 Muscle spasm of back; Z79.891 Long term (current) use of opiate analgesic | CPT/HCPCS: 99212 ==

== ENCOUNTER 2023-09-05 10:59 | Outpatient (AMB) | payer OTHER, SELFPAY ==
[2023-09-05 11:08] VITALS: BP 128/59; PULSE 85; RESP 18; O2SAT 100
--- NOTE | 2023-09-05 11:08 | MHC.OFFVIS ---
Intake Vital Signs 09/05/23 11:08 Height 5 ft 2 in BMI Reason not done Patient refused/unable BP 128/59 L Blood Pressure Location Lt brachial Position Sitting Respiration 18 Pulse 85 Pulse Source Pulse Oximeter Pulse Oximetry (%) 100 Oxygen Delivery Method Room Air Intake Visit Reasons: Medication Count/confirmed Allergies adhesive Allergy (Unknown, Verified 09/05/23 11:07) Hives Adhesive Bandages Allergy (Unknown, Uncoded 08/08/23 10:46) hives medical tape Allergy (Unknown, Uncoded 08/08/23 10:46) hives N.K.D.A. Allergy (Unknown, Uncoded 08/08/23 10:46) none HPI HPI Comments History of Present Illness Details Vannesa presents back to the office today for follow up chronic pain and chronic opioid therapy management. Patient is prescribed oxycodone acetaminophen 5-325mg take 1 tablet Q8H as needed for pain. Patient arrived today with the expectation of having 66 pills, she presented 75 pills which were counted in the presence of two staff members and returned to the patient in the original prescription bottle. This demonstrates responsible attitude toward patient's opioid medications. Pain is reported today as 5/10 and last dose of pain medication was taken at 09:00 this morning. Patient is not interested in proceeding with any interventional management options at this time. Prior visit with Dr Edgar 12/2022: She reports inadequate analgesia with her opioid medications.? She is on Percocet 5 mg 3 times a day.? She reports that her pain today is 6.5/10.? She reports significant problems with getting up straight from the wheelchair.? She reports bilateral flanks pains as well as bilateral paraspinal pains in the thoracic spine.? She formally had 3 pulmonary embolisms.? I DDD and SCS discussed with the patient.? Trial of Nevro SCS is offered to the patient if she can pass through the pre trial psychological evaluation.? She would like to think about it. [facility] Medical History Anxiety Chronic pain syndrome Depression Failed back syndrome, lumbar Gastritis Hyperlipidemia [employer] (current) use of opiate analgesic Surgical History H/O colonoscopy H/O discectomy H/O esophagogastroduodenoscopy H/O total hysterectomy H/O tubal ligation Family History Father No problems noted. Mother Diabetes Sister Ovarian cancer (Updated 06/08/23 @ 10:13 by Melissa Jones PA-C) Household Members Other:: lives with son Patient Tobacco Use Status: Never used Tobacco Review of Systems Const All systems reviewed & are unremarkable except as noted in HPI and below Physical Exam Vital Signs: Last Vital Signs Pulse 85 09/05/23 11:08 Resp 18 09/05/23 11:08 BP 128/59 L 09/05/23 11:08 Pulse Ox 100 09/05/23 11:08 Oxygen Delivery Method Room Air 09/05/23 11:08 General: awake, alert, oriented. Answers questions appropriately. Fully engaged in examination. Skin: warm, dry, intact without visible rashes or lesions. HEENT: Normocephalic. Conjuntivae clear without exudate. Sclera non-icteric. Hearing intact. Cardiac: External chest normal in appearance. Respiratory: No signs of trauma. No signs of respiratory distress. No cough, audible wheezing or stridor. Abdomen: without gross distension. MS: No obvious swelling or deformities. able to transition from sit to stand without assistance. ambulates with steady gait, utilizes cane for assistance Neurological: Oriented to person, place, time and situation. Thought process intact. No gait abnormalities appreciated. Psychiatric: Appropriate mood and affect. Good judgment and insight. 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 No obvious signs of diversion, abuse or misuse of the opioid medications. Will send in prescription for oxycodone/acetaminophen 5-325 mg Q8H with an advanced date of 09/27/2023. She is not interested in proceeding with SCS or ITDDD at this time. Patient to follow-up in the office in 1 month, sooner if needed. All questions and concerns have been answered and patient agrees with the plan. Previously, ITDD and SCS Nevro discussed with the patient with emphasis on Nevro cervical placement. Medications: Refilled oxycodone-acetaminophen 5-325 mg Partial Fill upon patient request. 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
== END 2023-09-05 11:26 | disposition home or self-care (01) ==
PROVIDERS: PCP Internal Medicine; Visit Provider Registered Nurse Emergency
DX: G89.4 Chronic pain syndrome (principal); M96.1 Postlaminectomy syndrome, not elsewhere classified; Z79.891 Long term (current) use of opiate analgesic; M62.830 Muscle spasm of back
CPT/HCPCS: 99214

== ENCOUNTER → 2023-09-05 10:59 | Outpatient (BNVA) | payer OTHER, SELFPAY | PROVIDERS: PCP Internal Medicine; Visit Provider Registered Nurse Emergency | DX: G89.4 Chronic pain syndrome (principal); M96.1 Postlaminectomy syndrome, not elsewhere classified; M62.830 Muscle spasm of back; Z79.891 Long term (current) use of opiate analgesic | CPT/HCPCS: 99212 ==

== ENCOUNTER 2023-10-04 10:41 | Outpatient (AMB) | payer OTHER, SELFPAY ==
--- NOTE | 2023-10-04 10:54 | MHC.OFFVIS ---
Intake Vital Signs 10/04/23 11:01 Height 5 ft 2 in Weight 135 lb 8 oz BMI 24.8 BP 136/56 L Blood Pressure Location Lt brachial Position Sitting Respiration 14 Pulse 101 H Pulse Source Pulse Oximeter Pulse Oximetry (%) 98 Oxygen Delivery Method Room Air Intake Visit Reasons: Medication Count/confirmed Intake Note: Patient comes in for pill count to Oxycodone-acetaminophen 5 mg - 325 mg tablets. Allergies adhesive Allergy (Unknown, Verified 10/04/23 11:01) Hives Adhesive Bandages Allergy (Unknown, Uncoded 08/08/23 10:46) hives medical tape Allergy (Unknown, Uncoded 08/08/23 10:46) hives N.K.D.A. Allergy (Unknown, Uncoded 08/08/23 10:46) none HPI HPI Comments History of Present Illness Details Vannesa presents back to the office today for follow up chronic pain and chronic opioid therapy management. Patient is prescribed oxycodone acetaminophen 5-325mg take 1 tablet Q8H as needed for pain. Patient arrived today with the expectation of having 75 pills, she presented 77 pills which were counted in the presence of two staff members and returned to the patient in the original prescription bottle. This demonstrates responsible attitude toward patient's opioid medications. Pain is reported today as 7/10 and last dose of pain medication was taken at 09:00 this morning. Prior visit with Dr Edgar 12/2022: She reports inadequate analgesia with her opioid medications.? She is on Percocet 5 mg 3 times a day.? She reports that her pain today is 6.5/10.? She reports significant problems with getting up straight from the wheelchair.? She reports bilateral flanks pains as well as bilateral paraspinal pains in the thoracic spine.? She formally had 3 pulmonary embolisms.? I DDD and SCS discussed with the patient.? Trial of Nevro SCS is offered to the patient if she can pass through the pre trial psychological evaluation.? She would like to think about it. [facility] Medical History Anxiety Chronic pain syndrome Depression Failed back syndrome, lumbar Gastritis Hyperlipidemia [facility] (current) use of opiate analgesic Surgical History H/O colonoscopy H/O discectomy H/O esophagogastroduodenoscopy H/O total hysterectomy H/O tubal ligation Family History Father No problems noted. Mother Diabetes Sister Ovarian cancer Social History (Updated 06/08/23 @ 10:13 by Melissa Jones PA-C) Household Members Other:: lives with son Patient Tobacco Use Status: Never used Tobacco Review of Systems Const All systems reviewed & are unremarkable except as noted in HPI and below Physical Exam Vital Signs: Last Vital Signs Pulse 101 H 10/04/23 11:01 Resp 14 10/04/23 11:01 BP 136/56 L 10/04/23 11:01 Pulse Ox 98 10/04/23 11:01 Oxygen Delivery Method Room Air 10/04/23 11:01 BMI result Body Mass Index 24.8 General: awake, alert, oriented. Answers questions appropriately. Fully engaged in examination. Skin: warm, dry, intact without visible rashes or lesions. HEENT: Normocephalic. Conjuntivae clear without exudate. Sclera non-icteric. Hearing intact. Cardiac: External chest normal in appearance. Respiratory: No signs of trauma. No signs of respiratory distress. No cough, audible wheezing or stridor. Abdomen: without gross distension. MS: No obvious swelling or deformities. able to transition from sit to stand without assistance. ambulates with steady gait, utilizes cane for assistance Neurological: Oriented to person, place, time and situation. Thought process intact. No gait abnormalities appreciated. Psychiatric: Appropriate mood and affect. Good judgment and insight. Const Other: Results Reviewed Results Reviewed: MRI lumbar spine CDI diagnostic imaging 07/25/2020. Anterior fusion of L4-5 with [address]. Minimal degenerative retrolisthesis on L3 on L4. Otherwise normal anatomic alignment. Moderate degenerative disc disease at all additional lumbar levels with partial loss of disc height and desiccation (worst at the segmental L3-L4 level (. Mild mixed Modic type discogenic endplate changes including faint Modic type 1 discogenic edema at L2-L3-L3-L4. No additional suspicious Mar edema. The vertebral body heights are largely maintained. The conus medullaris terminates at the level of L1. The distal spinal cord is normal in appearance. No significant abnormalities in the paraspinal musculature. Limited evaluation of the intra-abdominal structures without significant abnormalities. The abdominal aorta is of normal contour and caliber. Axial spinal levels: L1-L2: Mild diffuse disc bulge. There is mild bilateral facet joint arthroplasty. There is mild bilateral neural foraminal stenosis. There is no spinal canal stenosis. L2-L3: Mild to moderate diffuse disc bulge. There is moderate bilateral facet arthropathy with ligamentum flavum hypertrophy. There is moderate right and [id number] left neural foraminal stenosis. There is stenosis of the right greater than left lateral recess with no overall spinal canal stenosis centrally. L3-L4: Moderate disc bulge eccentric to the left. There is moderate bilateral facet joint arthropathy with ligamentum flavum hypertrophy. There is severe left and moderate to severe right neural foraminal stenosis. There is stenosis of the left greater than right lateral recess with no overt spinal canal stenosis centrally. L4-5: Fused at this level. Posterior decompression. There is no overt facet joint arthropathy. There is mild bilateral neural foraminal stenosis. There is no spinal canal stenosis. L5-S1: Mild diffuse disc bulge. There is moderate bilateral facet joint arthropathy. There is moderate left and mild right neural foraminal stenosis. There is no spinal canal stenosis. 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 It is notably there are stenosis of the lateral recess at L2-L3 and L3-L4. Moderate to severe neural foraminal stenosis at L2-L3-L3-L4 worse at L3-L4. No overt spinal canal stenosis. Assessment & Plan Assessment & Plan (1) Chronic pain syndrome: Code(s): G89.4 - Chronic pain syndrome (2) Failed back syndrome, lumbar: Code(s): M96.1 - Postlaminectomy syndrome, not elsewhere classified (3) Opioid contract exists: Code(s): Z79.891 - shelter (current) use of opiate analgesic (4) Muscle spasm of back: Code(s): M62.830 - Muscle spasm of back Plan [facility] was reviewed and without concerns. No obvious signs of diversion, abuse or misuse of the opioid medications. Will send in prescription for oxycodone/acetaminophen 5-325 mg Q8H with an advanced date of 10/29/2022. gabapentin 800mg po qhs refill sent today She is not interested in proceeding with any interventional management options at this time. Patient to follow-up in the office in 1 month, sooner if needed. All questions and concerns have been answered and patient agrees with the plan. Previously, ITDD and SCS Nevro discussed with the patient with emphasis on Nevro cervical placement. Medications: Refilled oxycodone-acetaminophen 5-325 mg Partial Fill upon patient request. 1 tab PO Q8H PRN 90 tabs 0RF pain 30 days G89.4 - Chronic pain syndrome, M96.1 - Postlaminectomy syndrome, not elsewhere classified, Z79.891 - shelter (current) use of opiate analgesic gabapentin 800 mg PO BEDTIME 90 tabs 0RF for pain G89.4 - Chronic pain syndrome, M96.1 - Postlaminectomy syndrome, not elsewhere classified Coding Level of Care Code Est Pt Level 4 (28501) Diagnoses Chronic pain syndrome G89.4 Failed back syndrome, lumbar M96.1 Opioid contract exists Z79.891 Muscle spasm of back M62.830
[2023-10-04 11:01] VITALS: BP 136/56; PULSE 101; RESP 14; O2SAT 98; BMI 24.8
== END 2023-10-04 11:03 | disposition home or self-care (01) ==
PROVIDERS: PCP Internal Medicine; Visit Provider Registered Nurse Emergency
DX: G89.4 Chronic pain syndrome (principal); M96.1 Postlaminectomy syndrome, not elsewhere classified; Z79.891 Long term (current) use of opiate analgesic; M62.830 Muscle spasm of back
CPT/HCPCS: 99214

== ENCOUNTER → 2023-10-04 10:41 | Outpatient (BNVA) | payer OTHER, SELFPAY | PROVIDERS: PCP Internal Medicine; Visit Provider Registered Nurse Emergency | DX: G89.4 Chronic pain syndrome (principal); M96.1 Postlaminectomy syndrome, not elsewhere classified; M62.830 Muscle spasm of back; Z79.891 Long term (current) use of opiate analgesic | CPT/HCPCS: 99212 ==

== ENCOUNTER 2023-11-01 10:45 | Outpatient (AMB) | payer OTHER, SELFPAY ==
--- NOTE | 2023-11-01 11:04 | MHC.OFFVIS ---
Intake Vital Signs 11/01/23 11:05 Height 5 ft 2 in Weight 135 lb BMI 24.7 BP 121/69 Blood Pressure Location Rt brachial Position Sitting Respiration 16 Pulse 80 Pulse Source Pulse Oximeter Pulse Oximetry (%) 98 Oxygen Delivery Method Room Air Intake Visit Reasons: Medication Count - Confirmed Allergies adhesive Allergy (Unknown, Verified 11/01/23 11:03) Hives Adhesive Bandages Allergy (Unknown, Uncoded 08/08/23 10:46) hives medical tape Allergy (Unknown, Uncoded 08/08/23 10:46) hives N.K.D.A. Allergy (Unknown, Uncoded 08/08/23 10:46) none HPI HPI Comments History of Present Illness Details Vannesa presents back to the office today for follow up chronic pain and chronic opioid therapy management. Patient is prescribed oxycodone acetaminophen 5-325mg take 1 tablet Q8H as needed for pain. Patient arrived today with the expectation of having 87 pills, she presented 86 pills which were counted in the presence of two staff members and returned to the patient in the original prescription bottle. This demonstrates responsible attitude toward patient's opioid medications. Pain is reported today as 6/10 and last dose of pain medication was taken at 08:30 this morning. Patient denies side effects including weakness, dizziness, chest pain, shortness of breath, somnolence, constipation, falls. Prior visit with Dr Edgar 12/2022: She reports inadequate analgesia with her opioid medications.? She is on Percocet 5 mg 3 times a day.? She reports that her pain today is 6.5/10.? She reports significant problems with getting up straight from the wheelchair.? She reports bilateral flanks pains as well as bilateral paraspinal pains in the thoracic spine.? She formally had 3 pulmonary embolisms.? I DDD and SCS discussed with the patient.? Trial of Nevro SCS is offered to the patient if she can pass through the pre trial psychological evaluation.? She would like to think about it. [facility] Medical History Anxiety Chronic pain syndrome Depression Failed back syndrome, lumbar Gastritis Hyperlipidemia retirement (current) use of opiate analgesic Surgical History H/O colonoscopy H/O discectomy H/O esophagogastroduodenoscopy H/O total hysterectomy H/O tubal ligation Family History Father No problems noted. Mother Diabetes Sister Ovarian cancer Social History (Updated 06/08/23 @ 10:13 by Melissa Jones PA-C) Household Members Other:: lives with son Patient Tobacco Use Status: Never used Tobacco Review of Systems Const All systems reviewed & are unremarkable except as noted in HPI and below Physical Exam Vital Signs: Last Vital Signs Pulse 80 11/01/23 11:05 Resp 16 11/01/23 11:05 BP 121/69 11/01/23 11:05 Pulse Ox 98 11/01/23 11:05 Oxygen Delivery Method Room Air 11/01/23 11:05 BMI result Body Mass Index 24.7 General: awake, alert, oriented. Answers questions appropriately. Fully engaged in examination. Skin: warm, dry, intact without visible rashes or lesions. HEENT: Normocephalic. Conjuntivae clear without exudate. Sclera non-icteric. Hearing intact. Cardiac: External chest normal in appearance. Respiratory: No signs of trauma. No signs of respiratory distress. No cough, audible wheezing or stridor. Abdomen: without gross distension. MS: No obvious swelling or deformities. able to transition from sit to stand without assistance. ambulates with steady gait, utilizes cane for assistance Neurological: Oriented to person, place, time and situation. Thought process intact. No gait abnormalities appreciated. Psychiatric: Appropriate mood and affect. Good judgment and insight. Const Other: Results Reviewed Results Reviewed: MRI lumbar spine CDI diagnostic imaging 07/25/2020. Anterior fusion of L4-5 with disc [address] place. Minimal degenerative retrolisthesis on L3 on L4. Otherwise normal anatomic alignment. Moderate degenerative disc disease at all additional lumbar levels with partial loss of disc height and desiccation (worst at the segmental L3-L4 level (. Mild mixed Modic type discogenic endplate changes including faint Modic type 1 discogenic edema at L2-L3-L3-L4. No additional suspicious Mar edema. The vertebral body heights are largely maintained. The conus medullaris terminates at the level of L1. The distal spinal cord is normal in appearance. No significant abnormalities in the paraspinal musculature. Limited evaluation of the intra-abdominal structures without significant abnormalities. The abdominal aorta is of normal contour and caliber. Axial spinal levels: L1-L2: Mild diffuse disc bulge. There is mild bilateral facet joint arthroplasty. There is mild bilateral neural foraminal stenosis. There is no spinal canal stenosis. L2-L3: Mild to moderate diffuse disc bulge. There is moderate bilateral facet arthropathy with ligamentum flavum hypertrophy. There is moderate right and lidl-le-nwwwfkox left neural foraminal stenosis. There is stenosis of the right greater than left lateral recess with no overall spinal canal stenosis centrally. L3-L4: Moderate disc bulge eccentric to the left. There is moderate bilateral facet joint arthropathy with ligamentum flavum hypertrophy. There is severe left and moderate to severe right neural foraminal stenosis. There is stenosis of the left greater than right lateral recess with no overt spinal canal stenosis centrally. L4-5: Fused at this level. Posterior decompression. There is no overt facet joint arthropathy. There is mild bilateral neural foraminal stenosis. There is no spinal canal stenosis. L5-S1: Mild diffuse disc bulge. There is moderate bilateral facet joint arthropathy. There is moderate left and mild right neural foraminal stenosis. There is no spinal canal stenosis. 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 It is notably there are stenosis of the lateral recess at L2-L3 and L3-L4. Moderate to severe neural foraminal stenosis at L2-L3-L3-L4 worse at L3-L4. No overt spinal canal stenosis. 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 No obvious signs of diversion, abuse or misuse of the opioid medications. Will send in prescription for oxycodone/acetaminophen 5-325 mg Q8H with an advanced date of 11/30/23. Declines further discussing interventional management options at this time. Patient to follow-up in the office in 1 month, sooner if needed. All questions and concerns have been answered and patient agrees with the plan. Previously, ITDD and SCS Nevro discussed with the patient with emphasis on Nevro cervical placement. Medications: Refilled oxycodone-acetaminophen 5-325 mg Partial Fill upon patient request. 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
[2023-11-01 11:05] VITALS: BP 121/69; PULSE 80; RESP 16; O2SAT 98; BMI 24.7
== END 2023-11-01 11:37 | disposition home or self-care (01) ==
PROVIDERS: PCP Internal Medicine; Visit Provider Registered Nurse Emergency
DX: G89.4 Chronic pain syndrome (principal); M96.1 Postlaminectomy syndrome, not elsewhere classified; M62.830 Muscle spasm of back; Z79.891 Long term (current) use of opiate analgesic
CPT/HCPCS: 99214

== ENCOUNTER → 2023-11-01 10:45 | Outpatient (BNVA) | payer OTHER, SELFPAY | PROVIDERS: PCP Internal Medicine; Visit Provider Registered Nurse Emergency | DX: G89.4 Chronic pain syndrome (principal); M96.1 Postlaminectomy syndrome, not elsewhere classified; M62.830 Muscle spasm of back; Z79.891 Long term (current) use of opiate analgesic | CPT/HCPCS: 99212 ==

== ENCOUNTER 2023-11-14 10:39 | Day surgery (SDC) | payer MEDICARE, SELFPAY ==
--- NOTE | 2023-11-13 09:54 | P.CONAN_ITS ---
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 Mother Diabetes Sister Ovarian cancer Surgical History Surgical History H/O colonoscopy H/O discectomy H/O esophagogastroduodenoscopy H/O total hysterectomy H/O tubal ligation Social History Social History (Updated 06/08/23 @ 10:13 by Melissa Jones PA-C) Household Members Other:: lives with son Patient Tobacco Use Status: Never used Tobacco Meds Allergies Allergy/AdvReac Type Severity Reaction Status Date / Time adhesive Allergy Unknown Hives Verified 11/01/23 11:03 Adhesive Bandages Allergy Unknown hives Uncoded 08/08/23 10:46 medical tape Allergy Unknown hives Uncoded 08/08/23 10:46 N.K.D.A. Allergy Unknown none Uncoded 08/08/23 10:46 Home Medications Medication Instructions Recorded Confirmed Last Taken Type pravastatin 40 mg tablet 40 mg PO DAILY 08/04/20 08/08/23 Unknown History venlafaxine 150 mg 300 mg PO QAM 08/04/20 08/08/23 Unknown History capsule,extended release 24 hr clonazepam 1 mg tablet 1 mg PO DAILY 03/17/21 08/08/23 Unknown History clonazepam 1 mg tablet 2 mg PO BEDTIME 03/17/21 08/08/23 Unknown History bupropion HCl 150 mg 24 hr tablet, 150 mg PO QAM 06/08/23 08/08/23 Unknown History extended release atorvastatin 40 mg tablet 40 mg PO DAILY 11/01/23 Unknown History Assessment and Plan Assessment Anesthesia Assessment: Chart Reviewed
[2023-11-14 10:53] VITALS: BMI 24.4
--- NOTE | 2023-11-14 10:56 | P.HPSUR_ITS ---
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 Allergy Unknown none Uncoded 08/08/23 10:46 Review of Systems Sugical H&P ROS: Negative: Constitution, Cardiovascular, Respiratory, Neurological, Psychiatric, Hem-Onc, Allergic/Immunologic, Gastrointestinal, Genitourinary, Musculoskeletal, Integumentary, Endocrine and Eyes/Ears/N ose/Throat Exam Surgical H&P Exam: Normal: HEENT, Normal: Heart, Normal: Lungs, Normal: Extremities, Normal: Abdomen, Normal: Skin and Normal: Neurological Plan Diagnosis/Plan: Unchanged I have reviewed the history and physical and performed a pertinent physical examination on my patient. No changes have occurred unless specified. Time Spent With Patient Time: Total time managing care of this patient today ____ minutes.
[2023-11-14 11:12] VITALS: BP 139/64; PULSE 84; RESP 16; TEMP 37.3; O2SAT 96
[2023-11-14] MEDS: Lactated Ringers 1,000 ML 100 ML IVCONT (11:20)
--- NOTE | 2023-11-14 11:44 | P.CONAN_ITS ---
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 Mother Diabetes Sister Ovarian cancer Family history of problems with anesthesia: No Surgical History Surgical History H/O colonoscopy H/O esophagogastroduodenoscopy H/O total hysterectomy H/O discectomy H/O tubal ligation History of Problems with Anesthesia: No Social History Social History Household Members Other:: lives with son Patient Tobacco Use Status: Never used Tobacco Use of substances other than those prescribed or required for medical reasons: Yes Are you DNR?: No Advance Directives: No Advance Directives Information Provided: Yes Meds Allergies Allergy/AdvReac Type Severity Reaction Status Date / Time adhesive Allergy Unknown Hives Verified 11/01/23 11:03 Adhesive Bandages Allergy Unknown hives Uncoded 08/08/23 10:46 medical tape Allergy Unknown hives Uncoded 08/08/23 10:46 N.K.D.A. Allergy Unknown none Uncoded 08/08/23 10:46 Active Medications: Current Medications Lactated Ringer's (Lr) 1,000 mls @ 100 mls/hr IVCONT .Q10H DEL Last Admin: 11/14/23 11:20 Dose: 100 mls/hr Home Medications Medication Instructions Recorded Confirmed Last Taken Type venlafaxine 150 mg 300 mg PO QAM 08/04/20 11/14/23 11/14/23 History capsule,extended release 24 hr clonazepam 1 mg tablet 1 mg PO DAILY 03/17/21 11/14/23 11/14/23 History clonazepam 1 mg tablet 2 mg PO BEDTIME 03/17/21 08/08/23 Unknown History bupropion HCl 150 mg 24 hr tablet, 150 mg PO QAM 06/08/23 11/14/23 11/14/23 History extended release atorvastatin 40 mg tablet 40 mg PO DAILY 11/01/23 11/14/23 11/14/23 History Exam Height,Weight and Vital Signs: Height 5 ft 2 in Weight 60.441 kg Last Vital Signs Temp 99.2 F 11/14/23 11:12 Pulse 84 11/14/23 11:12 Resp 16 11/14/23 11:12 BP 139/64 11/14/23 11:12 Pulse Ox 96 11/14/23 11:12 O2 Del Method Room Air 11/14/23 11:12 Airway Mallampati Class: II TM Dist: >3cm Neck ROM: Full Heart: RRR Lungs: CTA Assessment and Plan Assessment Anesthesia Assessment: Anesthesia Plan Discussed Final Anesthetic Review Family History of Problems with Anesthesia: No History of Problems with Anesthesia: No NPO: Yes ASA Class: II and III Final Preanesthetic Review: Meds/Allgs Chart Reviewed, Consent Obtained/Reviewed and Anes Risks/Benef Reviewed Patient Risk: Low Anesthetic Plan Anesthetic Plan: MAC: Disposition: Standard PACU
--- NOTE | 2023-11-14 12:15 | PC.NURSE ---
md bond aware of her pvcs.
--- NOTE | 2023-11-14 12:53 | P.OP_ITS ---
Operative Note Operative Note Date of Service: 11/14/23 Narrative: Operative Information Procedure Description: Colonoscopy Indication: high risk CRC, screening Anesthesia: MAC COLONOSCOPY Instrument: Olympus variable stiffness pediatric scope 190L Colonoscopy Monitoring: Vital signs and clinical assessment, continuous EKG monitoring, Pulse oximetry, Carbon Dioxide monitoring and blood pressure monitoring were done throughout the procedure. Colon withdrawal time was 10 minutes. Procedure: The patient was placed in the left lateral decubitis position and pre-procedure medications were administered. After a digital rectal examination of the ano-rectum, the video colonoscope was inserted into the rectum and advanced through the colon to the cecum/TI. The colonoscope was slowly withdrawn in a retrograde panoramic fashion and the colon mucosa was carefully examined including a retroflexed view of the rectum. Findings and interventions are described below. Procedure Difficulty: moderate Findings: Terminal Ileum-normal Cecum:normal Ascending Colon: normal Transverse Colon -normal Descending Colon:normal Sigmoid Colon: moderate diverticulosis Rectum: Retroflexion with small internal hemorrhoids, grade I Anorectum - normal Colon preparation: [place] Bowel Preparation Scale Right colon; 2 Transverse colon: 3 Left colon; 2 (0 = Unprepared colon segment with mucosa not seen due to solid stool that cannot be cleared. 1 = Portion of mucosa of the colon segment seen, but other areas of the colon segment not well seen due to staining, residual stool and/or opaque liquid. 2 = Minor amount of residual staining, small fragments of stool and/or opaque liquid, but mucosa of colon segment seen well. 3 = Entire mucosa of colon segment seen well with no residual staining, small fragments of stool or opaque liquid) Impression and Post Procedure Diagnosis: internal hemorrhoids diverticular disease Plan: High fiber diet leaflet Avoid straining at stool, epsom salts and sitz bath, anusol supps or cream Repeat Colonoscopy in 2 years or earlier if clinically indicated Above findings were reviewed with the patient and relevant handouts were provided if indicated.
[2023-11-14 12:57] VITALS: BP 103/44; PULSE 82; RESP 16; TEMP 36.1; O2SAT 100
[2023-11-14 13:12] VITALS: BP 112/50; PULSE 70; RESP 18; TEMP 37; O2SAT 100
== END 2023-11-14 13:43 | disposition home or self-care (01) ==
PROVIDERS: PCP Internal Medicine; Visit Provider Internal Medicine Gastroenterology
PROC: 0DJD8ZZ Inspection of Lower Intestinal Tract, Via Natural or Artificial Opening Endoscopic (ICD-10-PCS; CPT 45378; principal; 2023-11-14 12:30)
DX: Z12.11 Encounter for screening for malignant neoplasm of colon (principal); K57.30 Diverticulosis of large intestine without perforation or abscess without bleeding; K64.0 First degree hemorrhoids; E78.5 Hyperlipidemia, unspecified; F41.9 Anxiety disorder, unspecified; G89.4 Chronic pain syndrome; M96.1 Postlaminectomy syndrome, not elsewhere classified; K29.60 Other gastritis without bleeding; Z14.8 Genetic carrier of other disease; Z79.899 Other long term (current) drug therapy; Z79.891 Long term (current) use of opiate analgesic
CPT/HCPCS: G0105; J2704

== ENCOUNTER → 2023-11-14 10:39 | Outpatient (BNV) | payer MEDICARE, SELFPAY | PROVIDERS: PCP Internal Medicine; Visit Provider Internal Medicine Gastroenterology | DX: Z12.11 Encounter for screening for malignant neoplasm of colon (principal); Z15.09 Genetic susceptibility to other malignant neoplasm; K57.30 Diverticulosis of large intestine without perforation or abscess without bleeding; K64.0 First degree hemorrhoids | CPT/HCPCS: G0105 ==

== ENCOUNTER 2023-11-28 10:39 | Outpatient (AMB) | payer MEDICARE, SELFPAY ==
--- NOTE | 2023-11-28 11:02 | A.OFFVIS_ITS ---
Intake Vital Signs 11/28/23 11:04 Height 5 ft 2 in Weight 132 lb BMI 24.1 BP 93/47 L Blood Pressure Location Lt brachial Position Sitting Pulse 74 Intake Visit Reasons: s/p colon Intake Note: Patient follow up for Colonoscopy results. Patient deniesa ny GI issues. 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 Allergy (Unknown, Uncoded 08/08/23 10:46) none Medication List - Last Reconciled 11/28/23 by Melissa Jones PA-C atorvastatin 40 mg PO DAILY baclofen 5 mg PO BID bupropion HCl 150 mg PO QAM clonazepam 2 mg PO BEDTIME clonazepam 1 mg PO DAILY gabapentin 800 mg PO BEDTIME oxycodone-acetaminophen 5-325 mg 1 tab PO Q8H PRN 30 days venlafaxine ER 300 mg PO QAM HPI HPI Comments History of Present Illness Details A 58 y/o female - carrier status- f/u after colonoscopy Reviewed- procedure report and recommendations No GI concerns today Appt- good Bowels- ok-get constipated- High fiber diet PFSH Medical History Pulmonary embolism correction (current) use of opiate analgesic Chronic pain syndrome Failed back syndrome, lumbar Hyperlipidemia Anxiety Depression Gastritis Surgical History H/O colonoscopy H/O esophagogastroduodenoscopy H/O total hysterectomy H/O discectomy H/O tubal ligation Family History Father No problems noted. 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 Review of Systems Const All systems reviewed & are unremarkable except as noted in HPI and below Card Denies chest pain and Denies dyspnea Resp Denies dyspnea Physical Exam Vital Signs: Last Vital Signs Pulse 74 11/28/23 11:04 BP 93/47 L 11/28/23 11:04 BMI result Body Mass Index 24.1 Const General: cooperative and healthy appearing Orientation/consciousness: patient oriented x3 Limitations: physical limitations Eyes Sclerae: sclerae normal Resp Effort & Inspection: normal respiratory effort and able to speak in complete sentences Skin General skin exam: no rashes or lesions noted Neuro General: patient oriented x3 Psych Speech and movement: Clear speech present Affect: Labile affect present Attitude: cooperative Results Reviewed Results Reviewed: Impression and Post Procedure Diagnosis: internal hemorrhoids diverticular disease Plan: High fiber diet leaflet Avoid straining at stool, epsom salts and sitz bath, anusol supps or cream Repeat Colonoscopy in 2 years or earlier if clinically indicated Assessment & Plan Assessment & Plan (1) 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 Saba- 2 years Code(s): Z14.8 - Genetic carrier of other disease Plan: 2 year repeat- 2025 (2) Diverticulosis of colon: Code(s): K57.30 - Diverticulosis of large intestine without perforation or abscess without bleeding Plan: ER protocol HFD (3) Hemorrhoids: Code(s): K64.9 - Unspecified hemorrhoids Plan: avoid straining HFD Plan Repeat colonoscopy 2 years- HFD Diverticulosis/ itis- ER protocol Medications: New calcium polycarbophil (FiberCon) 1,250 mg (2 x 625 mg) PO DAILY 30 days 60 tabs 3RF Patient Instructions: Repeat colonoscopy 2 years- HFD Diverticulosis/ diverticuitis- ER protocol call for concerns Coding Level of Care Code Est Pt Level 3 (99616) Diagnoses 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
[2023-11-28 11:04] VITALS: BP 93/47; PULSE 74; BMI 24.1
== END 2023-11-28 11:33 | disposition home or self-care (01) ==
PROVIDERS: PCP Internal Medicine; Visit Provider Physician Assistant
DX: Z14.8 Genetic carrier of other disease (principal); K57.30 Diverticulosis of large intestine without perforation or abscess without bleeding; K64.9 Unspecified hemorrhoids
CPT/HCPCS: 99213

== ENCOUNTER → 2023-11-28 10:39 | Outpatient (BNVA) | payer MEDICARE, SELFPAY | PROVIDERS: PCP Internal Medicine; Visit Provider Physician Assistant | DX: K57.30 Diverticulosis of large intestine without perforation or abscess without bleeding (principal); K64.9 Unspecified hemorrhoids; Z14.8 Genetic carrier of other disease | CPT/HCPCS: 99212 ==

== ENCOUNTER 2023-12-08 10:49 | Outpatient (AMB) | payer OTHER, SELFPAY ==
--- NOTE | 2023-12-08 10:51 | A.OFFVIS_ITS ---
Intake Vital Signs 12/08/23 11:00 Height 5 ft 2 in Weight 132 lb 6 oz BMI 24.2 BP 127/65 Blood Pressure Location Rt brachial Position Sitting Pulse 48 L Pulse Source Pulse Oximeter Pulse Oximetry (%) 98 Oxygen Delivery Method Room Air Intake Visit Reasons: Pill count per Christa Navarro Intake Note: Vannesa comes in today for a pill count to oxycodone-acetaminophen. Patient should have 63 tablets and presents with 65 tablets which she last took today 12/08/23 at 9am. Pain today 05/18 Sheet Taker Required: No Accompanied by: Self / Same As Patient Allergies adhesive Allergy (Unknown, Verified 12/08/23 11:01) Hives Adhesive Bandages Allergy (Unknown, Uncoded 08/08/23 10:46) hives medical tape Allergy (Unknown, Uncoded 08/08/23 10:46) hives N.K.D.A. Allergy (Unknown, Uncoded 08/08/23 10:46) none HPI HPI Comments History of Present Illness Details Patient presents today for a pill count. She is supposed to have #63 pills in her possession and has #65 pills. MassPat reviewed. This demonstrates a responsible attitude in regards to the opioid regimen. She reports improved function and adequate analgesia with no noted side effects. Denies any fever, malaise, dizziness, dyspnea, shortness of breaths, chest pain, abdominal or groin pain, palpitations, chest pain, constipation, sedation, nausea, or urinary retention. Patient reports recent acute exacerbation of lower back pain due to taking out heavy trash and lifting it over the dumpster. She felt immediate muscle spasms and pain in her lower back. She was thinking about to go to ER but declined ER visit to avoid prolonged sitting. Reports pain with walking, prolonged sitting or standing. Denies numbnes or tingling, weakness, bladder or bowel dysfunction or saddle anesthesia. Patient reports heat, NSAIDs, baclofen, gabapentin and pain medication have been effective. Patient requests script for chiropractic manipulation therapy for lower back pain associated with muscle spasms. 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 Review of Systems Const All systems reviewed & are unremarkable except as noted in HPI and below Reports as per HPI, Denies body aches, Denies chills, Reports difficulty sleeping, Reports fatigue, Denies fever(s), Denies frequent falls, Denies headache(s), Denies malaise, Denies night sweats and Denies weight loss ENT Denies headache(s) and Reports neck pain Card Denies chest pain with activity, Denies irregular heart rhythm, Denies lightheadedness and Denies dyspnea on exertion Resp Denies cough and Denies dyspnea on exertion Musc Reports as per HPI, Reports back pain, Denies myalgias, Reports arthralgias, Denies muscle weakness, Reports neck pain, Denies numbness, Denies radiating pain into limb, Reports stiffness and Denies tingling Neuro Denies frequent falls, Denies headache(s), Denies numbness, Denies Sensory deficit (Neuro) and Denies tingling Endo Reports fatigue Physical Exam General: Appears afebrile. Alert and oriented. Mood and affect appropriate. Follows and participates in conversation appropriately. Respiratory effort is unlabored. No cough. No nasal discharge. Able to transition from sit to stand unassisted. Ambulates with cane with bilaterally normal heel strike and toe off. Back/Spine/Pelvis Cervical Spine: cervical muscular tenderness, pain with cervical ROM and No Cervical spine tenderness Thoracic/Lumbar Spine: thoracic and lumbar spine normal to inspection, Thoracic/lumbar spine scar(s), Lasegue's sign negative, straight leg raise negative bilaterally, pain with thoraco-lumbar ROM, paraspinal muscle tendern ess, thoraco-lumbar ROM limited, No thoracic spinal tenderness and No lumbar spinal tenderness Pelvis: no buttock tenderness Sacroiliac joints: bilaterally tender to palpation Neuro General: Normal light touch and pain sensation Cognition (Neuro): normal cognition Gait exam (Neuro): Antalgic gait present and Assistive device used Motor exam (neuro): 5/5 motor strength present throughout Sensory Exam: No Sensory deficit (Neuro) Extrem General: Yes capillary refill normal, Yes no clubbing, cyanosis or edema and Yes no calf tenderness Psych Appearance: grossly normal Mental Status: mental status grossly normal Speech and movement: Normal speech and movement present and Clear speech present Affect: normal affect Attitude: cooperative Thought process: Normal thought process present Thought content: Normal thought content present, suicidality (none), no hallucinations and No Depressive thoughts present Insight: Good insight present (Psych) Judgement: Good judgement present (Psych) Results Reviewed Results Reviewed: MRI lumbar spine CDI diagnostic imaging 07/25/2020. Anterior fusion of L4-5 with disc [address]. Minimal degenerative retrolisthesis on L3 on L4. Otherwise normal anatomic alignment. Moderate degenerative disc disease at all additional lumbar levels with partial loss of disc height and desiccation (worst at the segmental L3-L4 level (. Mild mixed Modic type discogenic endplate changes including faint Modic type 1 discogenic edema at L2-L3-L3-L4. No additional suspicious Mar edema. The vertebral body heights are largely maintained. The conus medullaris terminates at the level of L1. The distal spinal cord is normal in appearance. No significant abnormalities in the paraspinal musculature. Limited evaluation of the intra-abdominal structures without significant abnormalities. The abdominal aorta is of normal contour and caliber. Axial spinal levels: L1-L2: Mild diffuse disc bulge. There is mild bilateral facet joint arthroplasty. There is mild bilateral neural foraminal stenosis. There is no spinal canal stenosis. L2-L3: Mild to moderate diffuse disc bulge. There is moderate bilateral facet arthropathy with ligamentum flavum hypertrophy. There is moderate right and [id number] left neural foraminal stenosis. There is stenosis of the right greater than left lateral recess with no overall spinal canal stenosis centrally. L3-L4: Moderate disc bulge eccentric to the left. There is moderate bilateral facet joint arthropathy with ligamentum flavum hypertrophy. There is severe left and moderate to severe right neural foraminal stenosis. There is stenosis of the left greater than right lateral recess with no overt spinal canal stenosis centrally. L4-5: Fused at this level. Posterior decompression. There is no overt facet joint arthropathy. There is mild bilateral neural foraminal stenosis. There is no spinal canal stenosis. L5-S1: Mild diffuse disc bulge. There is moderate bilateral facet joint arthropathy. There is moderate left and mild right neural foraminal stenosis. There is no spinal canal stenosis. 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 It is notably there are stenosis of the lateral recess at L2-L3 and L3-L4. Moderate to severe neural foraminal stenosis at L2-L3-L3-L4 worse at L3-L4. No overt spinal canal stenosis. 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 No obvious signs of diversion, abuse or misuse of the opioid medications. Will send in prescription for oxycodone/acetaminophen 5-325 mg Q8H with an advanced date of 12/27/23. Declines further discussing interventional management options at this time. Script provided for Chiropractic Therapy. Patient is aware to call if pain worsens or if she develops any red flag symptoms to seek emergency care. Declined lumbar xray. Patient to follow-up in the office in 1 month, sooner if needed. All questions and concerns have been answered and patient agrees with the plan. Previously, ITDD and SCS Nevro discussed with the patient with emphasis on Nevro cervical placement. Orders: Referrals Chiropractic Referral G89.4 - Chronic pain syndrome, M54.50 - Low back pain, unspecified, M62.830 - Muscle spasm of back, M96.1 - Postlaminectomy syndrome, not elsewhere classified Medications: Refilled oxycodone-acetaminophen 5-325 mg Partial Fill upon patient request. 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
[2023-12-08 11:00] VITALS: BP 127/65; PULSE 48; O2SAT 98; BMI 24.2
== END 2023-12-08 11:06 | disposition home or self-care (01) ==
PROVIDERS: PCP Internal Medicine; Visit Provider Nurse Practitioner Family
DX: M54.50 Low back pain, unspecified (principal); M62.830 Muscle spasm of back; G89.4 Chronic pain syndrome; M96.1 Postlaminectomy syndrome, not elsewhere classified; Z79.891 Long term (current) use of opiate analgesic
CPT/HCPCS: 99214

== ENCOUNTER → 2023-12-08 10:49 | Outpatient (BNVA) | payer OTHER, SELFPAY | PROVIDERS: PCP Internal Medicine; Visit Provider Nurse Practitioner Family | DX: G89.4 Chronic pain syndrome (principal); M54.50 Low back pain, unspecified; M62.830 Muscle spasm of back; M96.1 Postlaminectomy syndrome, not elsewhere classified; Z79.891 Long term (current) use of opiate analgesic | CPT/HCPCS: 99212 ==

== ENCOUNTER 2024-01-05 10:47 | Outpatient (AMB) | payer OTHER, SELFPAY ==
[2024-01-05 10:56] VITALS: BP 118/61; PULSE 89; RESP 16; O2SAT 97; BMI 24.3
--- NOTE | 2024-01-05 10:56 | MHC.OFFVIS ---
Intake Vital Signs 01/05/24 10:56 Height 5 ft 2 in Weight 133 lb 2 oz BMI 24.3 BP 118/61 Blood Pressure Location Lt brachial Position Sitting Respiration 16 Pulse 89 Pulse Source Pulse Oximeter Pulse Oximetry (%) 97 Oxygen Delivery Method Room Air Intake Visit Reasons: PILL COUNT Allergies adhesive Allergy (Unknown, Verified 01/05/24 10:56) Hives Adhesive Bandages Allergy (Unknown, Uncoded 08/08/23 10:46) hives medical tape Allergy (Unknown, Uncoded 08/08/23 10:46) hives N.K.D.A. Allergy (Unknown, Uncoded 08/08/23 10:46) none HPI HPI Comments History of Present Illness Details Vannesa presents back to the office today for follow up chronic pain and chronic opioid therapy management. Patient is prescribed oxycodone acetaminophen 5-325mg take 1 tablet Q8H as needed for pain. Patient arrived today with the expectation of having 69 pills, she presented 74 pills which were counted in the presence of two staff members and returned to the patient in the original prescription bottle. This demonstrates responsible attitude toward patient's opioid medications. Pain is reported today as 6/10 and last dose of pain medication was taken at 08:30 this morning. Patient denies side effects including weakness, dizziness, chest pain, shortness of breath, somnolence, constipation, falls. At last visit patient reported acute exacerbation of her chronic back pain after lifting. She has been going to the chiropractor with improvement of her symptoms, she is awaiting insurance authorization for more chiropractor visits. Has been taking baclofen as needed, has 1 tablet left. Reports improvement in the spasms with the baclofen. Prior visit with Dr Edgar 12/2022: She reports inadequate analgesia with her opioid medications.? She is on Percocet 5 mg 3 times a day.? She reports that her pain today is 6.5/10.? She reports significant problems with getting up straight from the wheelchair.? She reports bilateral flanks pains as well as bilateral paraspinal pains in the thoracic spine.? She formally had 3 pulmonary embolisms.? I DDD and SCS discussed with the patient.? Trial of Nevro SCS is offered to the patient if she can pass through the pre trial psychological evaluation.? She would like to think about it. [facility] Medical History Pulmonary embolism [facility] (current) use of opiate analgesic Chronic pain syndrome Failed back syndrome, lumbar Hyperlipidemia Anxiety Depression Gastritis Surgical History H/O colonoscopy H/O esophagogastroduodenoscopy H/O total hysterectomy H/O discectomy H/O tubal ligation Family History Father No problems noted. 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 Answers questions appropriately. Fully engaged in examination. Skin: warm, dry, intact without visible rashes or lesions. HEENT: Normocephalic. Conjuntivae clear without exudate. Sclera non-icteric. Hearing intact. Cardiac: External chest normal in appearance. Respiratory: No signs of trauma. No signs of respiratory distress. No cough, audible wheezing or stridor. Abdomen: without gross distension. MS: No obvious swelling or deformities. able to transition from sit to stand without assistance. ambulates with steady gait, utilizes cane for assistance Neurological: Oriented to person, place, time and situation. Thought process intact. No gait abnormalities appreciated. Psychiatric: Appropriate mood and affect. Good judgment and insight. Const Other: Results Reviewed Results Reviewed: MRI lumbar spine CDI diagnostic imaging 07/25/2020. Anterior fusion of L4-5 with disc [address]. Minimal degenerative retrolisthesis on L3 on L4. Otherwise normal anatomic alignment. Moderate degenerative disc disease at all additional lumbar levels with partial loss of disc height and desiccation (worst at the segmental L3-L4 level (. Mild mixed Modic type discogenic endplate changes including faint Modic type 1 discogenic edema at L2-L3-L3-L4. No additional suspicious Mar edema. The vertebral body heights are largely maintained. The conus medullaris terminates at the level of L1. The distal spinal cord is normal in appearance. No significant abnormalities in the paraspinal musculature. Limited evaluation of the intra-abdominal structures without significant abnormalities. The abdominal aorta is of normal contour and caliber. Axial spinal levels: L1-L2: Mild diffuse disc bulge. There is mild bilateral facet joint arthroplasty. There is mild bilateral neural foraminal stenosis. There is no spinal canal stenosis. L2-L3: Mild to moderate diffuse disc bulge. There is moderate bilateral facet arthropathy with ligamentum flavum hypertrophy. There is moderate right and [id number] left neural foraminal stenosis. There is stenosis of the right greater than left lateral recess with no overall spinal canal stenosis centrally. L3-L4: Moderate disc bulge eccentric to the left. There is moderate bilateral facet joint arthropathy with ligamentum flavum hypertrophy. There is severe left and moderate to severe right neural foraminal stenosis. There is stenosis of the left greater than right lateral recess with no overt spinal canal stenosis centrally. L4-5: Fused at this level. Posterior decompression. There is no overt facet joint arthropathy. There is mild bilateral neural foraminal stenosis. There is no spinal canal stenosis. L5-S1: Mild diffuse disc bulge. There is moderate bilateral facet joint arthropathy. There is moderate left and mild right neural foraminal stenosis. There is no spinal canal stenosis. 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 It is notably there are stenosis of the lateral recess at L2-L3 and L3-L4. Moderate to severe neural foraminal stenosis at L2-L3-L3-L4 worse at L3-L4. No overt spinal canal stenosis. Assessment & Plan Assessment & Plan (1) Low back pain: Code(s): M54.50 - Low back pain, unspecified (2) Muscle spasm of back: Code(s): M62.830 - Muscle spasm of back (3) Chronic pain syndrome: Code(s): G89.4 - Chronic pain syndrome (4) Failed back syndrome, lumbar: Code(s): M96.1 - Postlaminectomy syndrome, not elsewhere classified (5) Opioid contract exists: Code(s): Z79.891 - [facility] (current) use of opiate analgesic Plan Masspat was reviewed and without concerns. No obvious signs of diversion, abuse or misuse of the opioid medications. Will send in prescription for oxycodone/acetaminophen 5-325 mg Q8H with an advanced date of 01/28/24. Declines further discussing interventional management options at this time. Continue with plan for further chiropractic treatment. Baclofen refill sent today, 5 mg twice daily as needed. Patient to follow-up in the office in 1 month, sooner if needed. All questions and concerns have been answered and patient agrees with the plan. Previously, ITDD and SCS Nevro discussed with the patient with emphasis on Nevro cervical placement. Medications: Refilled oxycodone-acetaminophen 5-325 mg Partial Fill upon patient request. 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
== END 2024-01-05 11:17 | disposition home or self-care (01) ==
PROVIDERS: PCP Internal Medicine; Visit Provider Registered Nurse Emergency
DX: G89.4 Chronic pain syndrome (principal); M54.50 Low back pain, unspecified; M62.830 Muscle spasm of back; Z79.891 Long term (current) use of opiate analgesic; M96.1 Postlaminectomy syndrome, not elsewhere classified
CPT/HCPCS: 99214

== ENCOUNTER → 2024-01-05 10:47 | Outpatient (BNVA) | payer OTHER, SELFPAY | PROVIDERS: PCP Internal Medicine; Visit Provider Registered Nurse Emergency | DX: G89.4 Chronic pain syndrome (principal); M54.50 Low back pain, unspecified; M62.830 Muscle spasm of back; M96.1 Postlaminectomy syndrome, not elsewhere classified; Z79.891 Long term (current) use of opiate analgesic | CPT/HCPCS: 99212 ==

== ENCOUNTER 2024-02-02 10:59 | Outpatient (AMB) | payer OTHER, SELFPAY ==
--- NOTE | 2024-02-02 11:02 | A.OFFVIS_ITS ---
Vital Signs 02/02/24 11:10 Height 5 ft 2 in Weight 137 lb 2 oz BMI 25.1 BP 122/54 L Blood Pressure Location Lt brachial Position Sitting Respiration 14 Pulse 95 Pulse Source Pulse Oximeter Pulse Oximetry (%) 98 Oxygen Delivery Method Room Air Intake Visit Reasons: Medication Count Intake Note: Patient comes in for pill count. Allergies adhesive Allergy (Unknown, Verified 02/02/24 11:09) Hives Adhesive Bandages Allergy (Unknown, Uncoded 08/08/23 10:46) hives medical tape Allergy (Unknown, Uncoded 08/08/23 10:46) hives N.K.D.A. Allergy (Unknown, Uncoded 08/08/23 10:46) none HPI Comments Details: Vannesa presents back to the office today for follow up chronic pain and chronic opioid therapy management. Patient is prescribed oxycodone acetaminophen 5-325mg take 1 tablet Q8H as needed for pain. Patient arrived today with the expectation of having 75 pills, she presented 80 pills which were counted in the presence of two staff members and returned to the patient in the original prescription bottle. This demonstrates responsible attitude toward patient's opioid medications. Pain is reported today as 4/10 and last dose of pain medication was taken at 09:30 this morning. Denies side effects including weakness, dizziness, chest pain, shortness of breath, somnolence, constipation, urinary retention or falls. [employer] insurance denied further chiropractor visits. She feels that that was helping, would like a new referral sent. She is no longer taking the baclofen. Previous visit with Dr Edgar 12/2022: She reports inadequate analgesia with her opioid medications.? She is on Percocet 5 mg 3 times a day.? She reports that her pain today is 6.5/10.? She reports significant problems with getting up straight from the wheelchair.? She reports bilateral flanks pains as well as bilateral paraspinal pains in the thoracic spine.? She formally had 3 pulmonary embolisms.? I DDD and SCS discussed with the patient.? Trial of Nevro SCS is offered to the patient if she can pass through the pre trial psychological evaluation.? She would like to think about it. 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 Answers questions appropriately. Fully engaged in examination. Skin: warm, dry, intact without visible rashes or lesions. HEENT: Normocephalic. Conjuntivae clear without exudate. Sclera non-icteric. Hearing intact. Cardiac: External chest normal in appearance. Respiratory: No signs of trauma. No signs of respiratory distress. No cough, audible wheezing or stridor. Abdomen: without gross distension. MS: No obvious swelling or deformities. able to transition from sit to stand without assistance. ambulates with steady gait, utilizes cane for assistance Neurological: Oriented to person, place, time and situation. Thought process int act. Psychiatric: Appropriate mood and affect. Good judgment and insight. Const Other: Results Reviewed Results Reviewed: MRI lumbar spine CDI diagnostic imaging 07/25/2020. Anterior fusion of L4-5 with disc [address]. Minimal degenerative retrolisthesis on L3 on L4. Otherwise normal anatomic alignment. Moderate degenerative disc disease at all additional lumbar levels with partial loss of disc height and desiccation (worst at the segmental L3-L4 level (. Mild mixed Modic type discogenic endplate changes including faint Modic type 1 discogenic edema at L2-L3-L3-L4. No additional suspicious Mar edema. The vertebral body heights are largely maintained. The conus medullaris terminates at the level of L1. The distal spinal cord is normal in appearance. No significant abnormalities in the paraspinal musculature. Limited evaluation of the intra-abdominal structures without significant abnormalities. The abdominal aorta is of normal contour and caliber. Axial spinal levels: L1-L2: Mild diffuse disc bulge. There is mild bilateral facet joint arthroplasty. There is mild bilateral neural foraminal stenosis. There is no spinal canal stenosis. L2-L3: Mild to moderate diffuse disc bulge. There is moderate bilateral facet arthropathy with ligamentum flavum hypertrophy. There is moderate right and [id number] left neural foraminal stenosis. There is stenosis of the right greater than left lateral recess with no overall spinal canal stenosis centrally. L3-L4: Moderate disc bulge eccentric to the left. There is moderate bilateral facet joint arthropathy with ligamentum flavum hypertrophy. There is severe left and moderate to severe right neural foraminal stenosis. There is stenosis of the left greater than right lateral recess with no overt spinal canal stenosis centrally. L4-5: Fused at this level. Posterior decompression. There is no overt facet joint arthropathy. There is mild bilateral neural foraminal stenosis. There is no spinal canal stenosis. L5-S1: Mild diffuse disc bulge. There is moderate bilateral facet joint arthropathy. There is moderate left and mild right neural foraminal stenosis. There is no spinal canal stenosis. 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 It is notably there are stenosis of the lateral recess at L2-L3 and L3-L4. Moderate to severe neural foraminal stenosis at L2-L3-L3-L4 worse at L3-L4. No overt spinal canal stenosis. Assessment & Plan Assessment & Plan (1) Low back pain: Code(s): M54.50 - Low back pain, unspecified Category: Medical (2) Muscle spasm of back: Code(s): M62.830 - Muscle spasm of back Category: Medical (3) Chronic pain syndrome: Code(s): G89.4 - Chronic pain syndrome Category: Medical (4) Failed back syndrome, lumbar: Code(s): M96.1 - Postlaminectomy syndrome, not elsewhere classified Category: Medical (5) Opioid contract exists: Code(s): Z79.891 - residential (current) use of opiate analgesic Category: Medical Plan [place] was reviewed and without concerns. No obvious signs of diversion, abuse or misuse of the opioid medications. Will send in prescription for oxycodone/acetaminophen 5-325 mg Q8H with an advanced date of 02/27/24. Declines further discussing interventional management options at this time. Continue with plan for further chiropractic treatment, referral sent. Patient to follow-up in the office in 1 month, sooner if needed. All questions and concerns have been answered and patient agrees with the plan. Previously, ITDD and SCS Nevro discussed with the patient with emphasis on Nevro cervical placement. Orders: Referrals Chiropractic Referral G89.4 - Chronic pain syndrome, M54.50 - Low back pain, unspecified, M62.830 - Muscle spasm of back, M96.1 - Postlaminectomy syndrome, not elsewhere classified Medications: Refilled oxycodone-acetaminophen 5-325 mg Partial Fill upon patient request. 1 tab PO Q8H 30 days PRN 90 tabs 0RF pain G89.4 - Chronic pain syndrome, M96.1 - Postlaminectomy syndrome, not elsewhere classified, Z79.891 - residential (current) use of opiate analgesic Coding Level of Care Code Est Pt Level 4 (37030) Diagnoses Low back pain M54.50 Muscle spasm of back M62.830 Chronic pain syndrome G89.4 Failed back syndrome, lumbar M96.1 Opioid contract exists Z79.891
[2024-02-02 11:10] VITALS: BP 122/54; PULSE 95; RESP 14; O2SAT 98; BMI 25.1
== END 2024-02-02 11:28 | disposition home or self-care (01) ==
PROVIDERS: PCP Internal Medicine; Visit Provider Registered Nurse Emergency
DX: G89.4 Chronic pain syndrome (principal); M54.50 Low back pain, unspecified; M62.830 Muscle spasm of back; Z79.891 Long term (current) use of opiate analgesic; M96.1 Postlaminectomy syndrome, not elsewhere classified
CPT/HCPCS: 99214

== ENCOUNTER → 2024-02-02 10:59 | Outpatient (BNVA) | payer OTHER, SELFPAY | PROVIDERS: PCP Internal Medicine; Visit Provider Registered Nurse Emergency | DX: G89.4 Chronic pain syndrome (principal); M54.50 Low back pain, unspecified; M62.830 Muscle spasm of back; M96.1 Postlaminectomy syndrome, not elsewhere classified; Z79.891 Long term (current) use of opiate analgesic | CPT/HCPCS: 99212 ==

== ENCOUNTER 2024-03-01 10:22 | Outpatient (AMB) | payer OTHER, SELFPAY ==
--- NOTE | 2024-03-01 10:40 | MHC.OFFVIS ---
Vital Signs 03/01/24 10:41 Height 5 ft 2 in Weight 135 lb 2 oz BMI 24.7 BP 113/59 L Blood Pressure Location Lt brachial Position Sitting Respiration 16 Pulse 93 Pulse Source Pulse Oximeter Pulse Oximetry (%) 97 Oxygen Delivery Method Room Air Intake Visit Reasons: PILL COUNT Allergies adhesive Allergy (Unknown, Verified 03/01/24 10:40) Hives Adhesive Bandages Allergy (Unknown, Uncoded 08/08/23 10:46) hives medical tape Allergy (Unknown, Uncoded 08/08/23 10:46) hives N.K.D.A. Allergy (Unknown, Uncoded 08/08/23 10:46) none HPI Comments Details: Vannesa presents back to the office today for follow up chronic pain and chronic opioid therapy management. Patient is prescribed oxycodone acetaminophen 5-325mg take 1 tablet Q8H as needed for pain. Patient arrived today with the expectation of having 87 pills, she presented 86 pills which were counted in the presence of two staff members and returned to the patient in the original prescription bottle. This demonstrates responsible attitude toward patient's opioid medications. Pain is reported today as 6/10 and last dose of pain medication was taken at 08:00 this morning. Denies side effects including weakness, dizziness, chest pain, shortness of breath, somnolence, constipation, urinary retention or falls. [employer] insurance denied further chiropractor visits again. She has been in contact with her attny. Previous visit with Dr Edgar 12/2022: She reports inadequate analgesia with her opioid medications.? She is on Percocet 5 mg 3 times a day.? She reports that her pain today is 6.5/10.? She reports significant problems with getting up straight from the wheelchair.? She reports bilateral flanks pains as well as bilateral paraspinal pains in the thoracic spine.? She formally had 3 pulmonary embolisms.? I DDD and SCS discussed with the patient.? Trial of Nevro SCS is offered to the patient if she can pass through the pre trial psychological evaluation.? She would like to think about it. 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 Answers questions appropriately. Fully engaged in examination. Skin: warm, dry, intact without visible rashes or lesions. HEENT: Normocephalic. Conjuntivae clear without exudate. Sclera non-icteric. Hearing intact. Cardiac: External chest normal in appearance. Respiratory: No signs of trauma. No signs of respiratory distress. No cough, audible wheezing or stridor. Abdomen: without gross distension. MS: No obvious swelling or deformities. able to transition from sit to stand without assistance. ambulates with steady gait, utilizes cane for assistance Neurological: Oriented to person, place, time and situation. Thought process intact. Psychiatric: Appropriate mood and affect. Good judgment and insight. Const Other: Results Reviewed Results Reviewed: MRI lumbar spine CDI diagnostic imaging 07/25/2020. Anterior fusion of L4-5 with [address] Minimal degenerative retrolisthesis on L3 on L4. Otherwise normal anatomic alignment. Moderate degenerative disc disease at all additional lumbar levels with partial loss of disc height and desiccation (worst at the segmental L3-L4 level (. Mild mixed Modic type discogenic endplate changes including faint Modic type 1 discogenic edema at L2-L3-L3-L4. No additional suspicious Mar edema. The vertebral body heights are largely maintained. The conus medullaris terminates at the level of L1. The distal spinal cord is normal in appearance. No significant abnormalities in the paraspinal musculature. Limited evaluation of the intra-abdominal structures without significant abnormalities. The abdominal aorta is of normal contour and caliber. Axial spinal levels: L1-L2: Mild diffuse disc bulge. There is mild bilateral facet joint arthroplasty. There is mild bilateral neural foraminal stenosis. There is no spinal canal stenosis. L2-L3: Mild to moderate diffuse disc bulge. There is moderate bilateral facet arthropathy with ligamentum flavum hypertrophy. There is moderate right and tkuv-ni-ujxsftak left neural foraminal stenosis. There is stenosis of the right greater than left lateral recess with no overall spinal canal stenosis centrally. L3-L4: Moderate disc bulge eccentric to the left. There is moderate bilateral facet joint arthropathy with ligamentum flavum hypertrophy. There is severe left and moderate to severe right neural foraminal stenosis. There is stenosis of the left greater than right lateral recess with no overt spinal canal stenosis centrally. L4-5: Fused at this level. Posterior decompression. There is no overt facet joint arthropathy. There is mild bilateral neural foraminal stenosis. There is no spinal canal stenosis. L5-S1: Mild diffuse disc bulge. There is moderate bilateral facet joint arthropathy. There is moderate left and mild right neural foraminal stenosis. There is no spinal canal stenosis. 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 It is notably there are stenosis of the lateral recess at L2-L3 and L3-L4. Moderate to severe neural foraminal stenosis at L2-L3-L3-L4 worse at L3-L4. No overt spinal canal stenosis. Assessment & Plan Assessment & Plan (1) Low back pain: Code(s): M54.50 - Low back pain, unspecified Category: Medical (2) Muscle spasm of back: Code(s): M62.830 - Muscle spasm of back Category: Medical (3) Chronic pain syndrome: Code(s): G89.4 - Chronic pain syndrome Category: Medical (4) Failed back syndrome, lumbar: Code(s): M96.1 - Postlaminectomy syndrome, not elsewhere classified Category: Medical (5) Opioid contract exists: Code(s): Z79.891 - prison (current) use of opiate analgesic Category: Medical Plan [employer] was reviewed and without concerns. No obvious signs of diversion, abuse or misuse of the opioid medications. Will send in prescription for oxycodone/acetaminophen 5-325 mg Q8H with an advanced date of 03/30/24. Declines further discussing interventional management options at this time. Continue with plan for further chiropractic treatment, referral sent at last visit. Patient will contact the office if she needs anything further. Patient to follow-up in the office in 1 month, sooner if needed. All questions and concerns have been answered and patient agrees with the plan. Previously, ITDD and SCS Nevro discussed with the patient with emphasis on Nevro cervical placement. Medications: Refilled oxycodone-acetaminophen 5-325 mg Partial Fill upon patient request. 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
[2024-03-01 10:41] VITALS: BP 113/59; PULSE 93; RESP 16; O2SAT 97; BMI 24.7
== END 2024-03-01 10:51 | disposition home or self-care (01) ==
PROVIDERS: PCP Internal Medicine; Visit Provider Registered Nurse Emergency
DX: G89.4 Chronic pain syndrome (principal); M54.50 Low back pain, unspecified; M62.830 Muscle spasm of back; Z79.891 Long term (current) use of opiate analgesic; M96.1 Postlaminectomy syndrome, not elsewhere classified
CPT/HCPCS: 99214

== ENCOUNTER → 2024-03-01 10:22 | Outpatient (BNVA) | payer OTHER, SELFPAY | PROVIDERS: PCP Internal Medicine; Visit Provider Registered Nurse Emergency | DX: G89.4 Chronic pain syndrome (principal); M54.50 Low back pain, unspecified; M62.830 Muscle spasm of back; M96.1 Postlaminectomy syndrome, not elsewhere classified; Z79.891 Long term (current) use of opiate analgesic | CPT/HCPCS: 99212 ==

== ENCOUNTER 2024-04-19 10:01 | Outpatient (AMB) | payer OTHER, SELFPAY ==
--- NOTE | 2024-04-19 10:04 | MHC.OFFVIS ---
Vital Signs 04/19/24 10:05 Height 5 ft 2 in Weight 135 lb BMI 24.7 BP 117/68 Blood Pressure Location Rt brachial Position Sitting Pulse 88 Pulse Source Pulse Oximeter Pulse Oximetry (%) 96 Oxygen Delivery Method Room Air Intake Visit Reasons: PILL COUNT/ random UDS Intake Note: Patient was sent today 04/19/24 for a random UDS. 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 Allergies adhesive Allergy (Unknown, Verified 03/01/24 10:40) Hives Adhesive Bandages Allergy (Unknown, Uncoded 08/08/23 10:46) hives medical tape Allergy (Unknown, Uncoded 08/08/23 10:46) hives N.K.D.A. Allergy (Unknown, Uncoded 08/08/23 10:46) none HPI Comments Details: Vannesa presents back to the office today for follow up chronic pain and chronic opioid therapy management. Patient is prescribed oxycodone acetaminophen 5-325mg take 1 tablet Q8H as needed for pain. Patient arrived today with the expectation of having 30 pills, she presented 30 pills which were counted in the presence of two staff members and returned to the patient in the original prescription bottle. This demonstrates responsible attitude toward patient's opioid medications. Pain is reported today as 7/10 and last dose of pain medication was taken at 09:00 this morning. Denies side effects including weakness, dizziness, chest pain, shortness of breath, somnolence, constipation, urinary retention or falls. Previous visit with Dr Edgar 12/2022: She reports inadequate analgesia with her opioid medications.? She is on Percocet 5 mg 3 times a day.? She reports that her pain today is 6.5/10.? She reports significant problems with getting up straight from the wheelchair.? She reports bilateral flanks pains as well as bilateral paraspinal pains in the thoracic spine.? She formally had 3 pulmonary embolisms.? I DDD and SCS discussed with the patient.? Trial of Nevro SCS is offered to the patient if she can pass through the pre trial psychological evaluation.? She would like to think about it. 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 Answers questions appropriately. Fully engaged in examination. Skin: warm, dry, intact without visible rashes or lesions. HEENT: Normocephalic. Conjuntivae clear without exudate. Sclera non-icteric. Hearing intact. Cardiac: External chest normal in appearance. Respiratory: No signs of trauma. No signs of respiratory distress. No cough, audible wheezing or stridor. Abdomen: without gross distension. MS: No obvious swelling or deformities. able to transition from sit to stand without assistance. ambulates with steady gait, utilizes cane for assistance Neurological: Oriented to person, place, time and situation. Thought process intact. Psychiatric: Appropriate mood and affect. Good judgment and insight. Const Other: Results Reviewed Results Reviewed: MRI lumbar spine CDI diagnostic imaging 07/25/2020. Anterior fusion of L4-5 with disc [address]. Minimal degenerative retrolisthesis on L3 on L4. Otherwise normal anatomic alignment. Moderate degenerative disc disease at all additional lumbar levels with partial loss of disc height and desiccation (worst at the segmental L3-L4 level (. Mild mixed Modic type discogenic endplate changes including faint Modic type 1 discogenic edema at L2-L3-L3-L4. No additional suspicious Mar edema. The vertebral body heights are largely maintained. The conus medullaris terminates at the level of L1. The distal spinal cord is normal in appearance. No significant abnormalities in the paraspinal musculature. Limited evaluation of the intra-abdominal structures without significant abnormalities. The abdominal aorta is of normal contour and caliber. Axial spinal levels: L1-L2: Mild diffuse disc bulge. There is mild bilateral facet joint arthroplasty. There is mild bilateral neural foraminal stenosis. There is no spinal canal stenosis. L2-L3: Mild to moderate diffuse disc bulge. There is moderate bilateral facet arthropathy with ligamentum flavum hypertrophy. There is moderate right and ssnm-[id number] left neural foraminal stenosis. There is stenosis of the right greater than left lateral recess with no overall spinal canal stenosis centrally. L3-L4: Moderate disc bulge eccentric to the left. There is moderate bilateral facet joint arthropathy with ligamentum flavum hypertrophy. There is severe left and moderate to severe right neural foraminal stenosis. There is stenosis of the left greater than right lateral recess with no overt spinal canal stenosis centrally. L4-5: Fused at this level. Posterior decompression. There is no overt facet joint arthropathy. There is mild bilateral neural foraminal stenosis. There is no spinal canal stenosis. L5-S1: Mild diffuse disc bulge. There is moderate bilateral facet joint arthropathy. There is moderate left and mild right neural foraminal stenosis. There is no spinal canal stenosis. 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 It is notably there are stenosis of the lateral recess at L2-L3 and L3-L4. Moderate to severe neural foraminal stenosis at L2-L3-L3-L4 worse at L3-L4. No overt spinal canal stenosis. Assessment & Plan Assessment & Plan (1) Low back pain: Code(s): M54.50 - Low back pain, unspecified Category: Medical (2) Muscle spasm of back: Code(s): M62.830 - Muscle spasm of back Category: Medical (3) Chronic pain syndrome: Code(s): G89.4 - Chronic pain syndrome Category: Medical (4) Failed back syndrome, lumbar: Code(s): M96.1 - Postlaminectomy syndrome, not elsewhere classified Category: Medical (5) Opioid contract exists: Code(s): Z79.891 - residential (current) use of opiate analgesic Category: Medical Plan [employer] was reviewed and without concerns. No obvious signs of diversion, abuse or misuse of the opioid medications. Will send in prescription for oxycodone/acetaminophen 5-325 mg Q8H with an advanced date of 04/29/24. Continue with plan for further chiropractic treatment Patient to follow-up in the office in 1 month, sooner if needed. All questions and concerns have been answered and patient agrees with the plan. Previously, ITDD and SCS Nevro discussed with the patient with emphasis on Nevro cervical placement. Medications: Refilled oxycodone-acetaminophen 5-325 mg Partial Fill upon patient request. 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
[2024-04-19 10:05] VITALS: BP 117/68; PULSE 88; O2SAT 96; BMI 24.7
== END 2024-04-19 10:35 | disposition home or self-care (01) ==
PROVIDERS: PCP Internal Medicine; Visit Provider Registered Nurse Emergency
DX: G89.4 Chronic pain syndrome (principal); M54.50 Low back pain, unspecified; M62.830 Muscle spasm of back; Z79.891 Long term (current) use of opiate analgesic; M96.1 Postlaminectomy syndrome, not elsewhere classified
CPT/HCPCS: 99214

== ENCOUNTER → 2024-04-19 10:01 | Outpatient (BNVA) | payer OTHER, SELFPAY | PROVIDERS: PCP Internal Medicine; Visit Provider Registered Nurse Emergency | DX: G89.4 Chronic pain syndrome (principal); M54.50 Low back pain, unspecified; M62.830 Muscle spasm of back; M96.1 Postlaminectomy syndrome, not elsewhere classified; Z79.891 Long term (current) use of opiate analgesic | CPT/HCPCS: 99212 ==

== ENCOUNTER 2024-05-10 10:02 | Outpatient (AMB) | payer OTHER, SELFPAY ==
--- NOTE | 2024-05-10 10:05 | A.OFFVIS_ITS ---
Vital Signs 05/10/24 10:13 Height 5 ft 2 in Weight 138 lb 6 oz BMI 25.3 BP 136/60 Blood Pressure Location Rt brachial Position Sitting Pulse 90 Pulse Source Pulse Oximeter Pulse Oximetry (%) 97 Oxygen Delivery Method Room Air Intake Visit Reasons: Pill Count Intake Note: Vannesa comes in today for a pill count to oxycodone-acetaminophen, patient should have 60 tablets and presents with 58 tablets which she last took today 05/10/24 at 8:30am. Pain today 10/10 Bank Reconciliator Required: No Accompanied by: Self / Same As Patient Allergies adhesive Allergy (Unknown, Verified 05/10/24 10:14) Hives Adhesive Bandages Allergy (Unknown, Uncoded 08/08/23 10:46) hives medical tape Allergy (Unknown, Uncoded 08/08/23 10:46) hives N.K.D.A. Allergy (Unknown, Uncoded 08/08/23 10:46) none HPI Comments Details: Vannesa presents back to the office today for follow up chronic pain and chronic opioid therapy management. Patient is prescribed oxycodone acetaminophen 5-325mg take 1 tablet Q8H as needed for pain. Patient arrived today with the expectation of having 60 pills, she presented 58 pills which were counted in the presence of two staff members and returned to the patient in the original prescription bottle. This demonstrates responsible attitude toward patient's opioid medications. Last dose of pain medication was taken at 08:30 this morning. Denies side effects including weakness, dizziness, chest pain, shortness of breath, somnolence, constipation, urinary retention or falls. Pain today is rated 10/10, patient c/o acute right hip pain for last 2 weeks. Evaluated by PCP yesterday, xrays were completed but she is still awaiting results. She was given prednisone 5 day prescription. endorses right hip pain, worse with moving and walking. cramping in thigh. Previous visit with Dr Edgar 12/2022: She reports inadequate analgesia with her opioid medications.? She is on Percocet 5 mg 3 times a day.? She reports that her pain today is 6.5/10.? She reports significant problems with getting up straight from the wheelchair.? She reports bilateral flanks pains as well as bilateral paraspinal pains in the thoracic spine.? She formally had 3 pulmonary embolisms.? I DDD and SCS discussed with the patient.? Trial of Nevro SCS is offered to the patient if she can pass through the pre trial psychological evaluation.? She would like to think about it. [facility] Medical History Pulmonary embolism skilled nursing (current) use of opiate analgesic Chronic pain syndrome Failed back syndrome, lumbar Hyperlipidemia Anxiety Depression Gastritis Surgical History H/O colonoscopy H/O esophagogastroduodenoscopy H/O total hysterectomy H/O discectomy H/O tubal ligation Family History Father No problems noted. 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 Answers questions appropriately. Fully engaged in examination. Skin: warm, dry, intact without visible rashes or lesions. HEENT: Normocephalic. Conjuntivae clear without exudate. Sclera non-icteric. Hearing intact. Cardiac: External chest normal in appearance. Respiratory: No signs of trauma. No signs of respiratory distress. No cough, audible wheezing or stridor. Abdomen: without gross distension. MS: No obvious swelling or deformities. able to transition from sit to stand without assistance. ambulates with steady gait, utilizes cane for assistance Pain with internal/external rotation of right hip Neurological: Oriented to person, place, time and situation. Thought process intact. Psychiatric: Appropriate mood and affect. Good judgment and insight. Const Other: Results Reviewed Results Reviewed: MRI lumbar spine [facility] diagnostic imaging 07/25/2020. Anterior fusion of L4-5 with disc [address]. Minimal degenerative retrolisthesis on L3 on L4. Otherwise normal anatomic alignment. Moderate degenerative disc disease at all additional lumbar levels with partial loss of disc height and desiccation (worst at the segmental L3-L4 level (. Mild mixed Modic type discogenic endplate changes including faint Modic type 1 discogenic edema at L2-L3-L3-L4. No additional suspicious Mar edema. The vertebral body heights are largely maintained. The conus medullaris terminates at the level of L1. The distal spinal cord is normal in appearance. No significant abnormalities in the paraspinal musculature. Limited evaluation of the intra-abdominal structures without significant abnormalities. The abdominal aorta is of normal contour and caliber. Axial spinal levels: L1-L2: Mild diffuse disc bulge. There is mild bilateral facet joint arthroplasty. There is mild bilateral neural foraminal stenosis. There is no spinal canal stenosis. L2-L3: Mild to moderate diffuse disc bulge. There is moderate bilateral facet arthropathy with ligamentum flavum hypertrophy. There is moderate right and uypo-nq-tzqbagmm left neural foraminal stenosis. There is stenosis of the right greater than left lateral recess with no overall spinal canal stenosis centrally. L3-L4: Moderate disc bulge eccentric to the left. There is moderate bilateral facet joint arthropathy with ligamentum flavum hypertrophy. There is severe left and moderate to severe right neural foraminal stenosis. There is stenosis of the left greater than right lateral recess with no overt spinal canal stenosis centrally. L4-5: Fused at this level. Posterior decompression. There is no overt facet joint arthropathy. There is mild bilateral neural foraminal stenosis. There is no spinal canal stenosis. L5-S1: Mild diffuse disc bulge. There is moderate bilateral facet joint arthropathy. There is moderate left and mild right neural foraminal stenosis. There is no spinal canal stenosis. 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 It is notably there are stenosis of the lateral recess at L2-L3 and L3-L4. Moderate to severe neural foraminal stenosis at L2-L3-L3-L4 worse at L3-L4. No overt spinal canal stenosis. Assessment & Plan Assessment & Plan (1) Low back pain: Code(s): M54.50 - Low back pain, unspecified Category: Medical (2) Muscle spasm of back: Code(s): M62.830 - Muscle spasm of back Category: Medical (3) Chronic pain syndrome: Code(s): G89.4 - Chronic pain syndrome Category: Medical (4) Failed back syndrome, lumbar: Code(s): M96.1 - Postlaminectomy syndrome, not elsewhere classified Category: Medical (5) Opioid contract exists: Code(s): Z79.891 - skilled nursing (current) use of opiate analgesic Category: Medical Plan Massdet was reviewed and without concerns. No obvious signs of diversion, abuse or misuse of the opioid medications. Will send in prescription for oxycodone/acetaminophen 5-325 mg Q8H with an advanced date. Continue with plan for further chiropractic treatment New Rx: Methocarbamol 500 mg p.o. t.i.d. p.r.n.. Advised [id number] nonsteroidal anti-inflammatory medications as needed for the right hip pain. Discussed. For treatments including right intra-articular hip injection if pain persists despite conservative treatment. She is awaiting x-ray results from her PCP. Declines referral for PT at this time, states it is too painful to move in she could not tolerate PT. she will discuss this further with her primary care doctor when they call her with the x-ray results Patient to follow-up in the office in 1 month, sooner if needed. All questions and concerns have been answered and patient agrees with the plan. Previously, ITDD and SCS Nevro discussed with the patient with emphasis on Nevro cervical placement. Medications: New methocarbamol No driving while taking this medication. Do no take with alcohol or other [employer]IVE Depressants 500 mg PO TID PRN 30 tabs 0RF muscle spasm Refilled oxycodone-acetaminophen 5-325 mg Partial Fill upon patient request. 1 tab PO Q8H PRN 90 tabs 0RF pain 30 days G89.4 - Chronic pain syndrome, M96.1 - Postlaminectomy syndrome, not elsewhere classified, Z79.891 - skilled nursing (current) use of opiate analgesic Discontinued baclofen Discontinued Reason: Doctor's Order 5 mg PO BID 20 tabs 0RF Coding Level of Care Code Est Pt Level 4 (34826) Diagnoses Low back pain M54.50 Muscle spasm of back M62.830 Chronic pain syndrome G89.4 Failed back syndrome, lumbar M96.1 Opioid contract exists Z79.897
[2024-05-10 10:13] VITALS: BP 136/60; PULSE 90; O2SAT 97; BMI 25.3
== END 2024-05-10 10:34 | disposition home or self-care (01) ==
PROVIDERS: PCP Internal Medicine; Visit Provider Registered Nurse Emergency
DX: M54.50 Low back pain, unspecified (principal); M62.830 Muscle spasm of back; G89.4 Chronic pain syndrome; M96.1 Postlaminectomy syndrome, not elsewhere classified; Z79.891 Long term (current) use of opiate analgesic
CPT/HCPCS: 99214

== ENCOUNTER → 2024-05-10 10:02 | Outpatient (BNVA) | payer OTHER, SELFPAY | PROVIDERS: PCP Internal Medicine; Visit Provider Registered Nurse Emergency | DX: G89.4 Chronic pain syndrome (principal); M54.50 Low back pain, unspecified; M62.830 Muscle spasm of back; M96.1 Postlaminectomy syndrome, not elsewhere classified; Z79.891 Long term (current) use of opiate analgesic | CPT/HCPCS: 99212 ==

== ENCOUNTER 2024-05-29 11:42 | Outpatient (AMB) | payer OTHER, SELFPAY ==
--- NOTE | 2024-05-29 11:43 | A.OFFVIS_ITS ---
Intake Visit Reasons: MRI FOLLOW UP/RESULTS Allergies adhesive Allergy (Unknown, Verified 05/10/24 10:14) Hives Adhesive Bandages Allergy (Unknown, Uncoded 08/08/23 10:46) hives medical tape Allergy (Unknown, Uncoded 08/08/23 10:46) hives N.K.D.A. Allergy (Unknown, Uncoded 08/08/23 10:46) none HPI Comments Details: Telephone visit today for follow up. Patient had recent MRI thru the ER. She requested to review results as she did not want to wait in the ER for them. Results reviewed, as per below Was discharged from the ER with oral steroids, states minimal relief only. Still has not been going to the chiropractor, pain started once these visit were discontinued by workers comp. Prior: Vannesa presents back to the office today for follow up chronic pain and chronic opioid therapy management. Patient is prescribed oxycodone acetaminophen 5-325mg take 1 tablet Q8H as needed for pain. Patient arrived today with the expectation of having 60 pills, she presented 58 pills which were counted in the presence of two staff members and returned to the patient in the original prescription bottle. This demonstrates responsible attitude toward patient's opioid medications. Last dose of pain medication was taken at 08:30 this morning. Denies side effects including weakness, dizziness, chest pain, shortness of breath, somnolence, constipation, urinary retention or falls. Pain today is rated 10/10, patient c/o acute right hip pain for last 2 weeks. Evaluated by PCP yesterday, xrays were completed but she is still awaiting results. She was given prednisone 5 day prescription. endorses right hip pain, worse with moving and walking. cramping in thigh. Previous visit with Dr Edgar 12/2022: She reports inadequate analgesia with her opioid medications.? She is on Percocet 5 mg 3 times a day.? She reports that her pain today is 6.5/10.? She reports significant problems with getting up straight from the wheelchair.? She reports bilateral flanks pains as well as bilateral paraspinal pains in the thoracic spine.? She formally had 3 pulmonary embolisms.? I DDD and SCS discussed with the patient.? Trial of Nevro SCS is offered to the patient if she can pass through the pre trial psychological evaluation.? She would like to think about it. 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 Review of Systems Const All systems reviewed & are unremarkable except as noted in HPI and below Physical Exam Vital signs and physical exam deferred, telephone visit only Telehealth Telehealth Telehealth Platform: Telephone Location of provider rendering services: practice address Location of patient: address on file Patient Identification confirmed using: Name, : Yes Telehealth method: voice only Patient verbally consented to treatment: Yes Patient verbally consented to billing insurance company: Yes Patient informed of any privacy concerns related to visit: Yes Results Reviewed Results Reviewed: Assessment & Plan Assessment & Plan (1) Low back pain: Code(s): M54.50 - Low back pain, unspecified Category: Medical (2) Muscle spasm of back: Code(s): M62.830 - Muscle spasm of back Category: Medical (3) Chronic pain syndrome: Code(s): G89.4 - Chronic pain syndrome Category: Medical (4) Failed back syndrome, lumbar: Code(s): M96.1 - Postlaminectomy syndrome, not elsewhere classified Category: Medical (5) Opioid contract exists: Code(s): Z79.891 - jail (current) use of opiate analgesic Category: Medical Plan Continue with plan for further chiropractic treatment C/W Methocarbamol 500 mg p.o. t.i.d. p.r.n.. Advised hspp-zkj-[id number] nonsteroidal anti-inflammatory medications as needed Discussed options for treatment, SCS trial and implant. Aware this would require mental health evaluation. Patient would like to further discuss at next visit in 2 weeks. Patient to follow-up in the office as planned, sooner if needed. All questions and concerns have been answered and patient agrees with the plan. Coding Level of Care Code Tele Est Pt Level 3 (31076) Diagnoses Low back pain M54.50 Muscle spasm of back M62.830 Chronic pain syndrome G89.4 Failed back syndrome, lumbar M96.1 Opioid contract exists Z79.897
== END 2024-05-29 12:16 | disposition home or self-care (01) ==
LOC: HO.PMC 11:42
PROVIDERS: PCP Internal Medicine; Visit Provider Registered Nurse Emergency
DX: M54.50 Low back pain, unspecified (principal); M62.830 Muscle spasm of back; G89.4 Chronic pain syndrome; M96.1 Postlaminectomy syndrome, not elsewhere classified; Z79.891 Long term (current) use of opiate analgesic
CPT/HCPCS: 99213

== ENCOUNTER → 2024-05-29 11:42 | Outpatient (BNVA) | payer OTHER, SELFPAY | PROVIDERS: PCP Internal Medicine; Visit Provider Registered Nurse Emergency ==

== ENCOUNTER 2024-06-14 10:11 | Outpatient (AMB) | payer OTHER, SELFPAY ==
[2024-06-14 10:19] VITALS: BP 130/58; PULSE 107; O2SAT 97; BMI 25.1
--- NOTE | 2024-06-14 10:19 | A.OFFVIS_ITS ---
Vital Signs 3 06/14/24 10:19 Height 5 ft 2 in Weight 137 lb BMI 25.1 BP 130/58 L Blood Pressure Location Rt brachial Position Sitting Pulse 107 H Pulse Source Pulse Oximeter Pulse Oximetry (%) 97 Oxygen Delivery Method Room Air Intake Visit Reasons: Pill Count Allergies adhesive Allergy (Unknown, Verified 06/14/24 10:20) Hives Adhesive Bandages Allergy (Unknown, Uncoded 06/14/24 10:20) hives medical tape Allergy (Unknown, Uncoded 06/14/24 10:20) hives N.K.D.A. Allergy (Unknown, Uncoded 06/14/24 10:20) none Medication List - Last Reconciled 06/14/24 by Georgina Soto atorvastatin 40 mg PO DAILY bupropion HCl XL 150 mg PO QAM calcium polycarbophil (FiberCon) 1,250 mg (2 x 625 mg) PO DAILY 30 days clonazepam 2 mg PO BEDTIME clonazepam 1 mg PO DAILY gabapentin 800 mg PO BEDTIME methocarbamol 500 mg PO TID PRN oxycodone-acetaminophen 5-325 mg 1 tab PO Q8H PRN 30 days prednisone 20 mg PO BID venlafaxine ER 300 mg PO QAM HPI Comments Details: Vannesa presents back to the office today for follow up chronic pain and chronic opioid therapy management. Patient is prescribed oxycodone acetaminophen 5-325mg take 1 tablet Q8H as needed for pain. Patient arrived today with the expectation of having 48 pills, she presented 47 pills which were counted in the presence of two staff members and returned to the patient in the original prescription bottle. This demonstrates responsible attitude toward patient's opioid medications. Pain today is rated as a 5/10. Last dose of pain medication was taken at 08:30 this morning. Denies side effects including weakness, dizziness, chest pain, shortness of breath, somnolence, constipation, urinary retention or falls. Continues with right lower back pain with radiation into the thigh. Physical therapy made it worse. Recent MRI in the emergency negative for any right-sided nerve root compression. She previously discussed SCS trial/implant with Dr. Edgar, she would like to restart the process for this. Prior: Telephone visit today for follow up. Patient had recent MRI thru the ER. She requested to review results as she did not want to wait in the ER for them. Results reviewed, as per below Was discharged from the ER with oral steroids, states minimal relief only. Still has not been going to the chiropractor, pain started once these visit were discontinued by workers comp. Prior: Vannesa presents back to the office today for follow up chronic pain and chronic opioid therapy management. Patient is prescribed oxycodone acetaminophen 5-325mg take 1 tablet Q8H as needed for pain. Patient arrived today with the expectation of having 60 pills, she presented 58 pills which were counted in the presence of two staff members and returned to the patient in the original prescription bottle. This demonstrates responsible attitude toward patient's opioid medications. Last dose of pain medication was taken at 08:30 this morning. Denies side effects including weakness, dizziness, chest pain, shortness of breath, somnolence, constipation, urinary retention or falls. Pain today is rated 10/10, patient c/o acute right hip pain for last 2 weeks. Evaluated by PCP yesterday, xrays were completed but she is still awaiting results. She was given prednisone 5 day prescription. endorses right hip pain, worse with moving and walking. cramping in thigh. Previous visit with Dr Edgar 12/2022: She reports inadequate analgesia with her opioid medications.? She is on Percocet 5 mg 3 times a day.? She reports that her pain today is 6.5/10.? She reports significant problems with getting up straight from the wheelchair.? She reports bilateral flanks pains as well as bilateral paraspinal pains in the thoracic spine.? She formally had 3 pulmonary embolisms.? I DDD and SCS discussed with the patient.? Trial of Nevro SCS is offered to the patient if she can pass through the pre trial psychological evaluation.? She would like to think about it. 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 Answers questions appropriately. Fully engaged in examination. Skin: warm, dry, intact without visible rashes or lesions. HEENT: Normocephalic. Conjuntivae clear without exudate. Sclera non-icteric. Hearing intact. Cardiac: External chest normal in appearance. Respiratory: No signs of trauma. No signs of respiratory distress. No cough, audible wheezing or stridor. Abdomen: without gross distension. MS: No obvious swelling or deformities. able to transition from sit to stand without assistance. ambulates with steady gait, utilizes cane for assistance Pain with internal/external rotation of right hip Nontender over right PSIS Tenderness over right lumbar vertebrae and lumbar paraspinal muscles Neurological: Oriented to person, place, time and situation. Thought process intact. Psychiatric: Appropriate mood and affect. Good judgment and insight. 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 No obvious signs of diversion, abuse or misuse of the opioid medications. Will send in prescription for oxycodone/acetaminophen 5-325 mg Q8H with an advanced date of 06/30/2024. Continue with plan for further chiropractic treatment Patient has exhausted conservative therapy including PT, NSAIDs, muscle relaxers prescription medications all without improvement of her symptoms. Previously she was offered SCS trial with [facility] by Dr. Edgar. There was issues getting it approved by her workmen's comp. She would like to restart the process. Patient has her own mental health provider, she will get a mental health clearance letter from psychiatrist fax our office. Then we can proceed with the SCS trial. Patient to follow-up in the office in 1 month, sooner if needed. All questions and concerns have been answered and patient agrees with the plan. Medications: Refilled 2 oxycodone-acetaminophen 5-325 mg Partial Fill upon patient request. 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
== END 2024-06-14 10:44 | disposition home or self-care (01) ==
PROVIDERS: PCP Internal Medicine; Visit Provider Registered Nurse Emergency
DX: G89.4 Chronic pain syndrome (principal); M54.50 Low back pain, unspecified; M62.830 Muscle spasm of back; Z79.891 Long term (current) use of opiate analgesic; M96.1 Postlaminectomy syndrome, not elsewhere classified
CPT/HCPCS: 99214; G2211

== ENCOUNTER → 2024-06-14 10:11 | Outpatient (BNVA) | payer OTHER, SELFPAY | PROVIDERS: PCP Internal Medicine; Visit Provider Registered Nurse Emergency | DX: G89.4 Chronic pain syndrome (principal); M54.50 Low back pain, unspecified; M62.830 Muscle spasm of back; M96.1 Postlaminectomy syndrome, not elsewhere classified; Z79.891 Long term (current) use of opiate analgesic | CPT/HCPCS: 99212 ==

== ENCOUNTER 2024-07-12 10:04 | Outpatient (AMB) | payer OTHER, SELFPAY ==
[2024-07-12 10:13] VITALS: BP 123/49; PULSE 86; O2SAT 100
--- NOTE | 2024-07-12 10:13 | MHC.OFFVIS ---
Vital Signs 07/12/24 10:13 Weight 136 lb BP 123/49 L Blood Pressure Location Rt brachial Position Sitting Pulse 86 Pulse Source Pulse Oximeter Pulse Oximetry (%) 100 Oxygen Delivery Method Room Air Intake Visit Reasons: PILL COUNT Allergies adhesive Allergy (Unknown, Verified 07/12/24 10:14) Hives Adhesive Bandages Allergy (Unknown, Uncoded 07/12/24 10:14) hives medical tape Allergy (Unknown, Uncoded 07/12/24 10:14) hives N.K.D.A. Allergy (Unknown, Uncoded 07/12/24 10:14) none Medication List - Last Reconciled 07/12/24 by Georgina Soto atorvastatin 40 mg PO DAILY bupropion HCl XL 150 mg PO QAM calcium polycarbophil (FiberCon) 1,250 mg (2 x 625 mg) PO DAILY 30 days clonazepam 2 mg PO BEDTIME clonazepam 1 mg PO DAILY gabapentin 800 mg PO BEDTIME methocarbamol 500 mg PO TID PRN oxycodone-acetaminophen 5-325 mg 1 tab PO Q8H PRN 30 days prednisone 20 mg PO BID venlafaxine ER 300 mg PO QAM HPI Comments Details: Vannesa presents back to the office today for follow up chronic pain and chronic opioid therapy management. Patient is prescribed oxycodone acetaminophen 5-325mg take 1 tablet Q8H as needed for pain. Patient arrived today with the expectation of having 57 pills, she presented 56 pills which were counted in the presence of two staff members and returned to the patient in the original prescription bottle. This demonstrates responsible attitude toward patient's opioid medications. Pain today is rated as a 4/10. Last dose of pain medication was taken at 08:30 this morning. Denies side effects including weakness, dizziness, chest pain, shortness of breath, somnolence, constipation, urinary retention or falls. Discussed SCS trial/implant at last visit, she was given mental health clearance form to discuss with her mental health provider. She states this has not been done yet and will work on it. Prior: Vannesa presents back to the office today for follow up chronic pain and chronic opioid therapy management. Patient is prescribed oxycodone acetaminophen 5-325mg take 1 tablet Q8H as needed for pain. Patient arrived today with the expectation of having 60 pills, she presented 58 pills which were counted in the presence of two staff members and returned to the patient in the original prescription bottle. This demonstrates responsible attitude toward patient's opioid medications. Last dose of pain medication was taken at 08:30 this morning. Denies side effects including weakness, dizziness, chest pain, shortness of breath, somnolence, constipation, urinary retention or falls. Pain today is rated 10/10, patient c/o acute right hip pain for last 2 weeks. Evaluated by PCP yesterday, xrays were completed but she is still awaiting results. She was given prednisone 5 day prescription. endorses right hip pain, worse with moving and walking. cramping in thigh. Previous visit with Dr Edgar 12/2022: She reports inadequate analgesia with her opioid medications.? She is on Percocet 5 mg 3 times a day.? She reports that her pain today is 6.5/10.? She reports significant problems with getting up straight from the wheelchair.? She reports bilateral flanks pains as well as bilateral paraspinal pains in the thoracic spine.? She formally had 3 pulmonary embolisms.? I DDD and SCS discussed with the patient.? Trial of Nevro SCS is offered to the patient if she can pass through the pre trial psychological evaluation.? She would like to think about it. 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 Answers questions appropriately. Fully engaged in examination. Skin: warm, dry, intact without visible rashes or lesions. HEENT: Normocephalic. Conjuntivae clear without exudate. Sclera non-icteric. Hearing intact. Cardiac: External chest normal in appearance. Respiratory: No signs of trauma. No signs of respiratory distress. No cough, audible wheezing or stridor. Abdomen: without gross distension. MS: No obvious swelling or deformities. able to transition from sit to stand without assistance. ambulates with steady gait, utilizes cane for assistance Neurological: Oriented to person, place, time and situation. Thought process intact. Psychiatric: Appropriate mood and affect. Good judgment and insight. 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 No obvious signs of diversion, abuse or misuse of the opioid medications. Will send in prescription for oxycodone/acetaminophen 5-325 mg Q8H with an advanced date of 07/31/2024. Previously she was offered SCS trial with Ronald by Dr. Edgar. At last visit she wanted to restart the process, she was given form to give to her mental health provider. She has not done this yet and is aware that we can not submit to insurance for approval until we receive this mental health clearance. Patient to follow-up in the office in 1 month, sooner if needed. All questions and concerns have been answered and patient agrees with the plan. Medications: Refilled oxycodone-acetaminophen 5-325 mg Partial Fill upon patient request. 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
== END 2024-07-12 10:27 | disposition home or self-care (01) ==
PROVIDERS: PCP Internal Medicine; Visit Provider Registered Nurse Emergency
DX: M54.50 Low back pain, unspecified (principal); M62.830 Muscle spasm of back; G89.4 Chronic pain syndrome; M96.1 Postlaminectomy syndrome, not elsewhere classified; Z79.891 Long term (current) use of opiate analgesic
CPT/HCPCS: 99214; G2211

== ENCOUNTER → 2024-07-12 10:04 | Outpatient (BNVA) | payer OTHER, SELFPAY | PROVIDERS: PCP Internal Medicine; Visit Provider Registered Nurse Emergency | DX: G89.4 Chronic pain syndrome (principal); M54.50 Low back pain, unspecified; M62.830 Muscle spasm of back; M96.1 Postlaminectomy syndrome, not elsewhere classified; Z79.891 Long term (current) use of opiate analgesic | CPT/HCPCS: 99212 ==

== ENCOUNTER 2024-08-09 09:54 | Outpatient (AMB) | payer OTHER, SELFPAY ==
[2024-08-09 10:11] VITALS: BP 133/58; PULSE 83; O2SAT 98; BMI 25.6
--- NOTE | 2024-08-09 10:11 | MHC.OFFVIS ---
Vital Signs 08/09/24 10:11 Height 5 ft 2 in Weight 140 lb BMI 25.6 BP 133/58 L Blood Pressure Location Rt brachial Position Sitting Pulse 83 Pulse Source Pulse Oximeter Pulse Oximetry (%) 98 Oxygen Delivery Method Room Air Intake Visit Reasons: Pill count Allergies adhesive Allergy (Unknown, Verified 08/09/24 10:12) Hives Adhesive Bandages Allergy (Unknown, Uncoded 08/09/24 10:12) hives medical tape Allergy (Unknown, Uncoded 08/09/24 10:12) hives N.K.D.A. Allergy (Unknown, Uncoded 08/09/24 10:12) none Medication List - Last Reconciled 08/09/24 by Georgina Soto atorvastatin 40 mg PO DAILY bupropion HCl XL 150 mg PO QAM calcium polycarbophil (FiberCon) 1,250 mg (2 x 625 mg) PO DAILY 30 days clonazepam 2 mg PO BEDTIME clonazepam 1 mg PO DAILY gabapentin 800 mg PO BEDTIME methocarbamol 500 mg PO TID PRN oxycodone-acetaminophen 5-325 mg 1 tab PO Q8H PRN 30 days prednisone 20 mg PO BID venlafaxine ER 300 mg PO QAM HPI Comments Details: Vannesa presents back to the office today for follow up chronic pain and chronic opioid therapy management. Patient is prescribed oxycodone acetaminophen 5-325mg take 1 tablet Q8H as needed for pain. Patient arrived today with the expectation of having 66 pills, she presented 65 pills which were counted in the presence of two staff members and returned to the patient in the original prescription bottle. This demonstrates responsible attitude toward patient's opioid medications. Pain today is rated as a 7/10. Last dose of pain medication was taken at 08:30 this morning. Denies side effects including weakness, dizziness, chest pain, shortness of breath, somnolence, constipation, urinary retention or falls. Frustrated that she is still not able to visit the chiropractor d/t billing and payment issues with her WC. Prior: Vannesa presents back to the office today for follow up chronic pain and chronic opioid therapy management. Patient is prescribed oxycodone acetaminophen 5-325mg take 1 tablet Q8H as needed for pain. Patient arrived today with the expectation of having 60 pills, she presented 58 pills which were counted in the presence of two staff members and returned to the patient in the original prescription bottle. This demonstrates responsible attitude toward patient's opioid medications. Last dose of pain medication was taken at 08:30 this morning. Denies side effects including weakness, dizziness, chest pain, shortness of breath, somnolence, constipation, urinary retention or falls. Pain today is rated 10/10, patient c/o acute right hip pain for last 2 weeks. Evaluated by PCP yesterday, xrays were completed but she is still awaiting results. She was given prednisone 5 day prescription. endorses right hip pain, worse with moving and walking. cramping in thigh. Previous visit with Dr Edgar 12/2022: She reports inadequate analgesia with her opioid medications.? She is on Percocet 5 mg 3 times a day.? She reports that her pain today is 6.5/10.? She reports significant problems with getting up straight from the wheelchair.? She reports bilateral flanks pains as well as bilateral paraspinal pains in the thoracic spine.? She formally had 3 pulmonary embolisms.? I DDD and SCS discussed with the patient.? Trial of Nevro SCS is offered to the patient if she can pass through the pre trial psychological evaluation.? She would like to think about it. 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 Answers questions appropriately. Fully engaged in examination. Skin: warm, dry, intact without visible rashes or lesions. HEENT: Normocephalic. Conjuntivae clear without exudate. Sclera non-icteric. Hearing intact. Cardiac: External chest normal in appearance. Respiratory: No signs of trauma. No signs of respiratory distress. No cough, audible wheezing or stridor. Abdomen: without gross distension. MS: No obvious swelling or deformities. able to transition from sit to stand without assistance. ambulates with steady gait, utilizes cane for assistance Neurological: Oriented to person, place, time and situation. Thought process intact. Psychiatric: Appropriate mood and affect. Good judgment and insight. 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 No obvious signs of diversion, abuse or misuse of the opioid medications. Will send in prescription for oxycodone/acetaminophen 5-325 mg Q8H with an advanced date of 08/31/24. Patient to follow-up in the office in 1 month, sooner if needed. All questions and concerns have been answered and patient agrees with the plan. Medications: Refilled oxycodone-acetaminophen 5-325 mg Partial Fill upon patient request. 1 tab PO Q8H PRN 90 tabs 0RF pain 30 days G89.4 - Chronic pain syndrome, M96.1 - Postlaminectomy syndrome, not elsewhere classified, Z79.891 - group home (current) use of opiate analgesic Coding Level of Care Code Est Pt Level 4 (68053) Complex EM visit Add On G2211 Diagnoses Low back pain M54.50 Muscle spasm of back M62.830 Chronic pain syndrome G89.4 Failed back syndrome, lumbar M96.1 Opioid contract exists Z79.891
== END 2024-08-09 10:24 | disposition home or self-care (01) ==
LOC: HO.PMC 09:55
PROVIDERS: PCP Internal Medicine; Visit Provider Registered Nurse Emergency
DX: M54.50 Low back pain, unspecified (principal); M62.830 Muscle spasm of back; G89.4 Chronic pain syndrome; Z79.891 Long term (current) use of opiate analgesic; M96.1 Postlaminectomy syndrome, not elsewhere classified
CPT/HCPCS: 99214; G2211

== ENCOUNTER → 2024-08-09 09:54 | Outpatient (BNVA) | payer OTHER, SELFPAY | PROVIDERS: PCP Internal Medicine; Visit Provider Registered Nurse Emergency | DX: G89.4 Chronic pain syndrome (principal); M54.50 Low back pain, unspecified; M62.830 Muscle spasm of back; M96.1 Postlaminectomy syndrome, not elsewhere classified; Z79.891 Long term (current) use of opiate analgesic | CPT/HCPCS: 99212 ==

== ENCOUNTER → 2024-09-12 09:58 | Outpatient (BNVA) | payer OTHER, SELFPAY | PROVIDERS: PCP Internal Medicine; Visit Provider Registered Nurse Emergency ==

== ENCOUNTER 2024-09-13 11:50 | Outpatient (AMB) | payer OTHER, SELFPAY ==
--- NOTE | 2024-09-13 11:49 | MHC.OFFVIS ---
Intake Visit Reasons: Follow Up Allergies adhesive Allergy (Unknown, Verified 09/13/24 11:51) Hives Adhesive Bandages Allergy (Unknown, Uncoded 08/09/24 10:12) hives medical tape Allergy (Unknown, Uncoded 08/09/24 10:12) hives N.K.D.A. Allergy (Unknown, Uncoded 08/09/24 10:12) none HPI Comments Details: Telephone visit completed today for follow-up. Patient presented to the office yesterday for pill count. She was 9 tab short was resulted in indefinite suspension for opioid program. She states around Thanksgiving she called our office to discuss her pain but never got a call back. There are no notes in her chart regarding such conversation. She also states her pain has been much worse that she needs chiropractor. 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 Patient has been referred to chiropractor multiple times but she states they will not schedule her appointment due to difficulties with getting paid from her [employer]'s comp. Reports that she is upset about being suspended. Stating ?everyone accuses me of selling my pills on the street?, these pills do nothing for me any ways?. Discuss compression script patient adamantly declined several times. Stated ?you guys don't trust me I don't want anything from you . During the visit yesterday she had tossed her pills at the medical case manager, she states that these were given back to her. She left the visit yesterday with her medication. Patient reports she can go several days without taking medication and will have withdrawal symptoms. She is not concerned about this and refuses compression script or comfort meds. Prior: Vannesa presents back to the office today for follow up chronic pain and chronic opioid therapy management. Patient is prescribed oxycodone acetaminophen 5-325mg take 1 tablet Q8H as needed for pain. Patient arrived today with the expectation of having 66 pills, she presented 65 pills which were counted in the presence of two staff members and returned to the patient in the original prescription bottle. This demonstrates responsible attitude toward patient's opioid medications. Pain today is rated as a 7/10. Last dose of pain medication was taken at 08:30 this morning. Denies side effects including weakness, dizziness, chest pain, shortness of breath, somnolence, constipation, urinary retention or falls. Frustrated that she is still not able to visit the chiropractor d/t billing and payment issues with her WC. Prior: Vannesa presents back to the office today for follow up chronic pain and chronic opioid therapy management. Patient is prescribed oxycodone acetaminophen 5-325mg take 1 tablet Q8H as needed for pain. Patient arrived today with the expectation of having 60 pills, she presented 58 pills which were counted in the presence of two staff members and returned to the patient in the original prescription bottle. This demonstrates responsible attitude toward patient's opioid medications. Last dose of pain medication was taken at 08:30 this morning. Denies side effects including weakness, dizziness, chest pain, shortness of breath, somnolence, constipation, urinary retention or falls. Pain today is rated 10/10, patient c/o acute right hip pain for last 2 weeks. Evaluated by PCP yesterday, xrays were completed but she is still awaiting results. She was given prednisone 5 day prescription. endorses right hip pain, worse with moving and walking. cramping in thigh. Previous visit with Dr Edgar 12/2022: She reports inadequate analgesia with her opioid medications.? She is on Percocet 5 mg 3 times a day.? She reports that her pain today is 6.5/10.? She reports significant problems with getting up straight from the wheelchair.? She reports bilateral flanks pains as well as bilateral paraspinal pains in the thoracic spine.? She formally had 3 pulmonary embolisms.? I DDD and SCS discussed with the patient.? Trial of Nevro SCS is offered to the patient if she can pass through the pre trial psychological evaluation.? She would like to think about it. 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 Review of Systems Const All systems reviewed & are unremarkable except as noted in HPI and below Physical Exam Telephone visit only, vital signs and physical exam deferred Telehealth Telehealth Telehealth Platform: Telephone Location of provider rendering services: practice address Location of patient: address on file Patient Identification confirmed using: Name, : Yes Telehealth method: voice only Patient verbally consented to treatment: Yes Patient verbally consented to billing insurance company: Yes Patient informed of any privacy concerns related to visit: Yes Minutes spent on Phone/Video with Pt.: 24 Results Reviewed Results Reviewed: Assessment & Plan Assessment & Plan (1) Low back pain: Code(s): M54.50 - Low back pain, unspecified Category: Medical (2) Muscle spasm of back: Code(s): M62.830 - Muscle spasm of back Category: Medical (3) Chronic pain syndrome: Code(s): G89.4 - Chronic pain syndrome Category: Medical (4) Failed back syndrome, lumbar: Code(s): M96.1 - Postlaminectomy syndrome, not elsewhere classified Category: Medical (5) Opioid contract exists: Code(s): 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 She was 9 pills short which resulted in indefinite as mentioned from our opioid program. Today patient upset about chiropractor referral. Advised her that there have been for referrals for chiropractor sent this year. 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 She will call our office once this has been settled to let us know where we can send a referral that is covered by her workmen's comp. Several times during the visit patient was offered compassion script which she adamantly declined. She states ?you people think I am stealing why would I want another prescription? and ?these pills do nothing for me any ways?. Discussed spinal cord stimulator trial/implant. Patient is aware that we need mental health clearance before this can be scheduled. She states that she will consider this and if she decides to proceed will let the office know. All questions and concerns were answered. Patient declines follow up at this time. She will call the office if she wishes to schedule an appointment Medications: Refilled gabapentin 800 mg PO BEDTIME 90 tabs 6RF for pain G89.4 - Chronic pain syndrome, M96.1 - Postlaminectomy syndrome, not elsewhere classified Coding Level of Care Code Tele Est Pt Level 3 (09575) Complex EM visit Add On G2211 Diagnoses Low back pain M54.50 Muscle spasm of back M62.830 Chronic pain syndrome G89.4 Failed back syndrome, lumbar M96.1 Opioid contract exists Z79.891
== END 2024-09-13 11:51 | disposition home or self-care (01) ==
LOC: HO.PMC 11:50
PROVIDERS: PCP Internal Medicine; Visit Provider Registered Nurse Emergency
DX: G89.4 Chronic pain syndrome (principal); M54.50 Low back pain, unspecified; M62.830 Muscle spasm of back; Z79.891 Long term (current) use of opiate analgesic; M96.1 Postlaminectomy syndrome, not elsewhere classified
CPT/HCPCS: 99213

== ENCOUNTER → 2024-09-13 11:50 | Outpatient (BNVA) | payer OTHER, SELFPAY | PROVIDERS: PCP Internal Medicine; Visit Provider Registered Nurse Emergency | DX: M96.1 Postlaminectomy syndrome, not elsewhere classified (principal); G89.4 Chronic pain syndrome ==